=== PATIENT | female | born 1965 | race Caucasian/White ===

== ENCOUNTER 2018-06-10 10:45 | Emergency (ER) | payer OTHER, MEDICAID, SELFPAY ==
[2018-06-10 10:52] VITALS: BP 182/90; PULSE 83; RESP 18; TEMP 36.5; O2SAT 100; BMI 30.4
--- NOTE | 2018-06-10 11:27 | ED.BACK ---
HPI - Back Pain/Injury General Chief Complaint: Back Pain/Injury Stated Complaint: right side back pain Time Seen by Provider: 06/10/18 11:26 Source: patient Mode of arrival: ambulatory Limitations: no limitations History of Present Illness HPI Narrative: This is a 52-year-old female comes to the emergency department with complaint of right flank pain. Patient states it is kind of her middle lower back. She states that she was homeless before and was sleeping on the ground and has been in bed this week so she thought that might have exacerbated things. Movement does make it worse. Particularly bending over. She does not have any pain radiating down her leg. She does not have any bowel or bladder incontinence. She does not recall any single traumatic episode or event that started the pain. She did have a UTI and her antibiotics were not completed as they were stolen along with her blood pressure medication. She has not had any fevers, she has occasionally had some slight nausea but no vomiting. no chest pain, no shortness of breath. no diarrhea or constipation. She has not noticed a lot of dysuria, urgency or frequency. Related Data Previous Rx's Medication Instructions Recorded ciprofloxacin HCl 500 mg PO BID #28 tab 06/10/18 lisinopril 5 mg PO DAILY #30 tab 06/10/18 tramadol [Ultram] 50 mg PO Q6H PRN #5 tab 06/10/18 Allergies Allergy/AdvReac Type Severity Reaction Status Date / Time No Known Drug Allergies Allergy Verified 06/10/18 10:57 Review of Systems Review of Systems ROS Unobtainable: All systems reviewed & are unremarkable except as noted in HPI and below Constitutional Denies body ache(s), Denies chills, Denies excessive sweating, Denies fever(s), Denies lethargy and Denies weakness Cardiovascular Denies chest pain, Denies diaphoresis, Denies leg edema, Denies lightheadedness, Denies dyspnea and Denies dyspnea on exertion Respiratory Denies chest congestion, Denies cough, Denies dyspnea, Denies dyspnea on exertion and Denies wheezing Gastrointestinal Gastrointestinal: Denies abdominal pain, Denies change in bowel habits, Denies fecal incontinence, Denies diarrhea, Denies nausea and Denies vomiting Genitourinary Denies urinary frequency, Denies dysuria, Reports flank pain (left), Denies urinary incontinence and Denies urinary urgency Musculoskeletal Reports as per HPI, Denies abnormal gait, Reports back pain (right lower back.), Reports limited range of motion (mildly), Denies numbness, Denies radiating pain into limb and Denies tingling Neurologic Denies abnormal gait, Denies numbness, Denies tingling and Denies weakness Endocrine Denies excessive sweating Allergic/Immunologic Denies wheezing [facility] Medical History (Updated 06/10/18 @ 12:44 by Giselle Grady DO) Coronary artery disease (Chronic) Hypertension (Chronic) Tobacco abuse (Chronic) Surgical History (Updated 06/10/18 @ 11:46 by Giselle Grady DO) H/O angioplasty (Chronic) Social History (Updated 06/10/18 @ 11:46 by Giselle Grady DO) housing: homeless Smoking Status: Current every day smoker alcohol intake: current substance use type: marijuana additional social history: Homeless, currently staying with mother locally. Unsure if will stay in area or not. Social History (Updated 06/10/18 @ 11:46 by Giselle Grady DO) housing: homeless Smoking Status: Current every day smoker alcohol intake: current substance use type: marijuana additional social history: Homeless, currently staying with mother locally. Unsure if will stay in area or not. Exam Narrative Exam Narrative: GENERAL: Alert and oriented x three, well-nourished, well-appearing female in mild distress. HEENT: Head normocephalic, atraumatic, EOMI, pupils reactive, face symmetric, moist mucous membranes NECK: Supple, full range of motion CARDIOVASCULAR: Regular rate and rhythm without murmurs, rubs or gallops. RESPIRATORY: Breath sounds equal bilaterally, no wheezes rales or rhonchi. ABDOMEN: Soft, nontender. Normoactive bowel sounds all 4 quadrants. No guarding or rebound, rigidity, no mass BACK: No cervical, thoracic or lumbar vertebral point tenderness. Patient has normal range of motion. Patient's gait is normal. Rectal exam is deferred. Muscle strength is 5/5 in lower extremities, DTRs are 2/4 and lower extremities. Dorsalis pedis and tibialis pulses are 2+ and lower extremities. Sensation is intact in the lower extremities. : Very mild right CVA tenderness, no left CVA tenderness. EXTREMITIES: Normal range of motion, no clubbing or edema. Neurovascularly intact NEUROLOGICAL: Cranial nerves II through XII grossly intact. Moving all extremities SKIN: Warm, dry, no petechiae, no rashes or lesions. Initial Vital Signs Initial Vital Signs: Vital Signs Temperature 97.7 F 06/10/18 10:52 Pulse Rate 83 06/10/18 10:52 Respiratory Rate 18 06/10/18 10:52 Blood Pressure 182/90 H 06/10/18 10:52 Pulse Oximetry 100 06/10/18 10:52 Course Orders Ordered: ED Orders 06/10/18 12:44 Urine Culture Stat Urine Microscopic Stat Discontinued Medications Ketorolac Tromethamine (Toradol) 60 mg IM NOW ONE Stop: 06/10/18 11:43 Last Admin: 06/10/18 12:33 Dose: 60 mg Vital Signs - 8 hr 06/10/18 13:01 Pulse Rate 65 Respiratory Rate 12 Blood Pressure [Left Arm] 161/100 H Pulse Oximetry 99 MDM - Back Pain/Injury Lab Data Attestation: I reviewed the patient's lab results. Lab Results 06/10/18 Range/Units 12:44 Urine RBC None seen (0-5/HPF) Urine WBC 5-10/hpf H (0-5/HPF) Ur Squamous Epith Cells 0-1 /hpf (0-5/HPF) Urine Bacteria Many (>30) H (None) Ur Culture Indicated? Specimen cultured Urine Dip Bedside Urine Glucose Negative Bedside Urine Bilirubin - Negative Bedside Urine Ketone - Negative Urine Specific [place] 1.025 Bedside Urine Occult Blood - Negative Bedside Urine pH 6.0 Bedside Urine Protein +/- 15 Bedside Urine Urobilinogen +/- 1mg Bedside Urine Nitrite + Positive Bedside Urine Leukocytes ++ 125 Esterase MDM Narrative Medical decision making narrative: Patient's UA shows nitrates as well as leukocyte esterase, with her recurrent flank pain. Her blood pressure is elevated but otherwise normal vitals she has not been vomiting or febrile so would treat as a pyelo antibiotic domínguez but do not feel that she needs lab work at this time. She did used to take lisinopril 5 mg so we discussed giving a prescription. Also recommend that she restart her aspirin that she used to take. She requested some medication for pain so give her 5 tramadol tablets. Discharge Plan Departure Patient Disposition: Home Clinical Impression: Pyelonephritis, Hypertension Discharge Date/Time: 06/10/18 13:05 Interventions: ED Discharge Assessment Last Done: 06/10/18 13:03 Instructions: DI for Kidney Infection Activity Restrictions/Additional Instructions: Take antibiotics until they are completely gone. Start them today. Restart her blood pressure medication, take 1 tablet of lisinopril daily. I also recommend you take 81 mg aspirin like you used to take. Take pain medication as prescribed, this medication can make you sleepy do not drive, perform hazards activities or make any major decisions while taking them. Return to the emergency department for persistent fevers, persistent vomiting, rapidly worsening abdominal, back or flank pain, passing out, black or bloody stools or other new or concerning symptoms. Prescriptions: New lisinopril 5 mg tablet 5 mg PO DAILY Qty: 30 RF: 0 ciprofloxacin HCl 500 mg tablet 500 mg PO BID Qty: 28 RF: 0 tramadol [Ultram] 50 mg tablet 50 mg PO Q6H PRN (Reason: pain) Qty: 5 RF: 0
[2018-06-10] MEDS: KETOROLAC 60 MG/2 ML VIAL IM (12:33)
[2018-06-10 12:45] LABS: RBC Urine None Seen (0-5/HPF)
[2018-06-10 13:01] VITALS: BP 161/100; PULSE 65; RESP 12; O2SAT 99
[2018-06-10 13:02] LABS: Bacteria Urine Many (>30); Culture Indicated Urine Specimen Cultured; Squamous Epithelial Cell Urine 0-1 /HPF (0-5/HPF); WBC Urine 5-10/HPF (0-5/HPF)
== END 2018-06-10 13:05 | disposition home or self-care (01) ==
PROVIDERS: Emergency Provider Emergency Medicine
DX: N12 Tubulo-interstitial nephritis, not specified as acute or chronic (principal); I10 Essential (primary) hypertension; R11.0 Nausea
CPT/HCPCS: 81003; 81015; 87077; 87086; 87186; 96372; 99283; J1885

== ENCOUNTER 2018-06-13 14:04 | Emergency (ER) | payer OTHER, MEDICAID, SELFPAY ==
[2018-06-13 14:29] VITALS: BP 165/88; PULSE 78; RESP 20; TEMP 37.3; O2SAT 97; BMI 33.4
--- NOTE | 2018-06-13 15:13 | ED.BACK ---
HPI - Back Pain/Injury <NARAYAN Gutierres - Last Filed: 06/13/18 19:13> General Chief Complaint: Back Pain/Injury Stated Complaint: Back pain,lower rt side Time Seen by Provider: 06/13/18 15:04 Source: patient Mode of arrival: ambulatory Limitations: no limitations History of Present Illness HPI Narrative: The patient is a 52-year-old female with history of hypertension current everyday smoker who presents with a chief complaint of right-sided back pain. She was seen at this facility and diagnosed with pyelonephritis on 06/10/2018. She was started on Cipro and states she has been taking the medication as directed. She states she felt better for a few days, and then that her right back started hurting. She denies any vomiting, but complains of nausea. She does complain of low-grade temperatures. She denies any chest pain or shortness of breath. Related Data Previous Rx's Medication Instructions Recorded ciprofloxacin HCl 500 mg PO BID #28 tab 06/10/18 lisinopril 5 mg PO DAILY #30 tab 06/10/18 tramadol [Ultram] 50 mg PO Q6H PRN #5 tab 06/10/18 Allergies Allergy/AdvReac Type Severity Reaction Status Date / Time No Known Drug Allergies Allergy Verified 06/10/18 10:57 Review of Systems <NARAYAN Gutierres - Last Filed: 06/13/18 19:13> Review of Systems GENERAL: Denies chills, fatigue, malaise, fever, sweats. HEENT: Denies sinus pain, ear pain, sore throat, difficulty swallowing, dizziness. RESPIRATORY: Denies dyspnea, cough, wheezing, hemoptysis, sputum. CARDIOVASCULAR: Denies chest pain, palpitations, orthopnea, edema, GASTROINTESTINAL: See HPI : See HPI MUSCULOSKELETAL: denies weakness, joint pain, or bony pain SKIN: Denies rash, skin lesions, or other NEUROLOGIC: Denies weakness, headache, numbness, change in speech, confusion, seizures, incoordination. PSYCHIATRIC: No concerning psychosocial issues. 12 point review of systems is negative except for those stated above PFSH <NARAYAN Gutierres - Last Filed: 06/13/18 19:13> Medical History Coronary artery disease (Chronic) Hypertension (Chronic) Tobacco abuse (Chronic) Surgical History (Updated 06/10/18 @ 11:46 by Giselle Grady DO) H/O angioplasty (Chronic) Social History (Updated 06/10/18 @ 11:46 by Giselle Grady DO) housing: homeless Smoking Status: Current every day smoker alcohol intake: current substance use type: marijuana additional social history: Homeless, currently staying with mother locally. Unsure if will stay in area or not. Social History (Updated 06/10/18 @ 11:46 by Giselle Grady DO) housing: homeless Smoking Status: Current every day smoker alcohol intake: current substance use type: marijuana additional social history: Homeless, currently staying with mother locally. Unsure if will stay in area or not. Exam <NARAYAN Gutierres - Last Filed: 06/13/18 19:13> Narrative Exam Narrative: GENERAL: This is a well-nourished, well-developed patient, bent over on exam table HEAD: Atraumatic. Normocephalic. No temporal or scalp tenderness. EYES: Pupils equal round and reactive. Extraocular motions intact. No scleral icterus. No injection or drainage. ENT: Nose without bleeding, purulent drainage or septal hematoma. Throat without erythema, tonsillar hypertrophy or exudate. Uvula midline. Airway patent. NECK: Trachea midline. No JVD or lymphadenopathy. Supple, nontender, no meningeal signs. CARDIOVASCULAR: Regular rate and rhythm without murmurs, gallops, or rubs. RESPIRATORY: Clear to auscultation. Breath sounds equal bilaterally. No wheezes, rales, or rhonchi. No cough. No increased respiratory effort. GASTROINTESTINAL: Abdomen soft, non-tender, nondistended. No hepato-splenomegaly, or palpable masses. No guarding. EXTREMITIES: No clubbing, cyanosis, or edema. No joint tenderness, effusion, or edema noted. BACK: Nontender without deformity or crepitance. Flank tenderness right, no flank tenderness on left NEURO: AOx3. SKIN: No rash or erythema. Initial Vital Signs Initial Vital Signs: Vital Signs Temperature 99.1 F 06/13/18 14:29 Pulse Rate 78 06/13/18 14:29 Respiratory Rate 20 06/13/18 14:29 Blood Pressure 165/88 H 06/13/18 14:29 Pulse Oximetry 97 06/13/18 14:29 <Janki Nair MD - Last Filed: 06/15/18 14:18> Initial Vital Signs Initial Vital Signs: Vital Signs Temperature 99.1 F 06/13/18 14:29 Pulse Rate 78 06/13/18 14:29 Respiratory Rate 20 06/13/18 14:29 Blood Pressure 165/88 H 06/13/18 14:29 Pulse Oximetry 97 06/13/18 14:29 Course <JOSH Gutierres- - Last Filed: 06/13/18 19:13> Orders Ordered: Discontinued Medications Sodium Chloride (Normal Saline 0.9%) 1,000 mls @ 1,000 mls/hr IV BOLUS ONE Stop: 06/13/18 16:10 Last Infusion: 06/13/18 16:12 Dose: 0 mls/hr Admin: 06/13/18 15:38 Dose: 1,000 mls/hr Ketorolac Tromethamine (Toradol) 30 mg IV NOW ONE Stop: 06/13/18 15:12 Last Admin: 06/13/18 15:37 Dose: 30 mg Ondansetron HCl (Zofran) 4 mg IV NOW ONE Stop: 06/13/18 15:12 Last Admin: 06/13/18 15:37 Dose: 4 mg Vital Signs - 8 hr 06/13/18 14:29 06/13/18 18:05 Temperature 99.1 F Pulse Rate 78 66 Respiratory Rate 20 15 Blood Pressure 165/88 H Blood Pressure [Left Arm] 139/72 Pulse Oximetry 97 100 <Janki Nair MD - Last Filed: 06/15/18 14:18> Orders Ordered: Discontinued Medications Sodium Chloride (Normal Saline 0.9%) 1,000 mls @ 1,000 mls/hr IV BOLUS ONE Stop: 06/13/18 16:10 Last Infusion: 06/13/18 16:12 Dose: 0 mls/hr Admin: 06/13/18 15:38 Dose: 1,000 mls/hr Ketorolac Tromethamine (Toradol) 30 mg IV NOW ONE Stop: 06/13/18 15:12 Last Admin: 06/13/18 15:37 Dose: 30 mg Ondansetron HCl (Zofran) 4 mg IV NOW ONE Stop: 06/13/18 15:12 Last Admin: 06/13/18 15:37 Dose: 4 mg Vital Signs - 8 hr 06/13/18 14:29 06/13/18 18:05 Temperature 99.1 F Pulse Rate 78 66 Respiratory Rate 20 15 Blood Pressure 165/88 H Blood Pressure [Left Arm] 139/72 Pulse Oximetry 97 100 MDM - Back Pain/Injury <ANDRES GutierresP- - Last Filed: 06/13/18 19:13> Lab Data Attestation: I reviewed the patient's lab results. Result diagrams: 06/13/18 15:30 06/13/18 15:30 Lab Results 06/13/18 06/13/18 06/13/18 Range/Units 15:30 15:30 15:30 WBC 7.5 (4.5-11.0) X10^3/uL RBC 4.30 (4.0-5.2) X10^6/uL Hgb 11.1 L (12.0-16.0) g/dL Hct 33.3 L (36-46) % MCV 77.5 L (80-100) fL MCH 25.8 L (26-34) PG MCHC 33.3 (30-36) % RDW 18.4 H (11.6-14.8) % Plt Count 221 (150-400) X10^3/uL Neut % (Auto) 58.9 (50-75) % Lymph % (Auto) 25.6 (25-40) % [place] % (Auto) 10.7 (3-14) % Eos % (Auto) 3.7 (2-4) % Baso % (Auto) 1.1 (0-2) % Neut # (Auto) 4400 (4726-2684) /uL Lymph # (Auto) 1900 (2530-1667) /uL [place] # (Auto) 800 (0-900) /uL Eos # (Auto) 300 (0-450) /uL Baso # (Auto) 100 (0-100) /uL Sodium 136 L (137-145) mmol/L Potassium 4.5 (3.4-5.1) mmol/L Chloride 106 (98-107) mmol/L Carbon Dioxide 25 (22-32) mmol/L BUN 20 H (7-17) mg/dL Creatinine 0.80 (0.52-1.04) mg/dL Estimated GFR > 60.0 (>60) mL/min BUN/Creatinine Ratio 25.0 H (6-22) Glucose 85 (70-100) mg/dL Lactate 0.5 L (0.7-2.1) mmol/L Calcium 8.7 (8.4-10.2) mg/dL Total Bilirubin 0.2 (0.2-1.3) mg/dL AST 16 (14-36) IU/L ALT 24 (9-52) IU/L Alkaline Phosphatase 61 (38-126) U/L Total Protein 6.3 (6.3-8.2) g/dL Albumin 3.6 (3.5-5.0) g/dL Globulin 2.7 (1.7-4.1) g/dL Albumin/Globulin Ratio 1.3 (1.0-2.8) Urine Color Urine Appearance Urine pH (4.5-8.0) Ur Specific Burr (1.000-1.035) Urine Protein (Negative) Urine Glucose (UA) (Negative) g/dL Urine Ketones (NEGATIVE) Urine Occult Blood (Negative) Urine Nitrate (Negative) Urine Bilirubin (NEGATIVE) Urine Urobilinogen (0.2) E.U./dL Ur Leukocyte Esterase (NEGATIVE) Urine RBC (0-5/HPF) Urine WBC (0-5/HPF) Ur Squamous Epith Cells (0-5/HPF) Urine Bacteria (None) Ur Culture Indicated? Urine Opiates Screen (Negative) Ur Oxycodone Screen (Negative) Urine Methadone Screen (Negative) Ur Barbiturates Screen (Negative) U Tricyclic Antidepress (Negative) Ur Phencyclidine Scrn (Negative) Ur Amphetamines Screen (Negative) U Methamphetamines Scrn (Negative) Ur MDMA Scrn (Ecstasy) (Negative) U Benzodiazepines Scrn (Negative) Urine Cocaine Screen (Negative) U Marijuana (THC) Screen (Negative) 06/13/18 06/13/18 Range/Units 16:55 16:55 WBC (4.5-11.0) X10^3/uL RBC (4.0-5.2) X10^6/uL Hgb (12.0-16.0) g/dL Hct (36-46) % MCV (80-100) fL MCH (26-34) PG MCHC (30-36) % RDW (11.6-14.8) % Plt Count (150-400) X10^3/uL Neut % (Auto) (50-75) % Lymph % (Auto) (25-40) % [place] % (Auto) (3-14) % Eos % (Auto) (2-4) % Baso % (Auto) (0-2) % Neut # (Auto) (3101-7916) /uL Lymph # (Auto) (6856-1126) /uL [place] # (Auto) (0-900) /uL Eos # (Auto) (0-450) /uL Baso # (Auto) (0-100) /uL Sodium (137-145) mmol/L Potassium (3.4-5.1) mmol/L Chloride (98-107) mmol/L Carbon Dioxide (22-32) mmol/L BUN (7-17) mg/dL Creatinine (0.52-1.04) mg/dL Estimated GFR (>60) mL/min BUN/Creatinine Ratio (6-22) Glucose (70-100) mg/dL Lactate (0.7-2.1) mmol/L Calcium (8.4-10.2) mg/dL Total Bilirubin (0.2-1.3) mg/dL AST (14-36) IU/L ALT (9-52) IU/L Alkaline Phosphatase (38-126) U/L Total Protein (6.3-8.2) g/dL Albumin (3.5-5.0) g/dL Globulin (1.7-4.1) g/dL Albumin/Globulin Ratio (1.0-2.8) Urine Color Yellow Urine Appearance Clear Urine pH 5.0 (4.5-8.0) Ur Specific Burr 1.020 (1.000-1.035) Urine Protein Negative (Negative) Urine Glucose (UA) Negative (Negative) g/dL Urine Ketones Negative (NEGATIVE) Urine Occult Blood Negative (Negative) Urine Nitrate Negative (Negative) Urine Bilirubin Negative (NEGATIVE) Urine Urobilinogen 0.2 (0.2) E.U./dL Ur Leukocyte Esterase Negative (NEGATIVE) Urine RBC None seen (0-5/HPF) Urine WBC 0-1/hpf (0-5/HPF) Ur Squamous Epith Cells 0-1 /hpf (0-5/HPF) Urine Bacteria None seen (None) Ur Culture Indicated? Cult not indicated Urine Opiates Screen Negative (Negative) Ur Oxycodone Screen Positive H (Negative) Urine Methadone Screen Negative (Negative) Ur Barbiturates Screen Negative (Negative) U Tricyclic Antidepress Negative (Negative) Ur Phencyclidine Scrn Negative (Negative) Ur Amphetamines Screen Negative (Negative) U Methamphetamines Scrn Negative (Negative) Ur MDMA Scrn (Ecstasy) Negative (Negative) U Benzodiazepines Scrn Negative (Negative) Urine Cocaine Screen Negative (Negative) U Marijuana (THC) Screen Positive H (Negative) Point of Care Testing Test Results Negative MDM Narrative Medical decision making narrative: The patient is a 52-year-old female who presents for the chief complaint of right flank pain. Given that she was at this facility 2 days ago and diagnosed with pyelonephritis, workup was completed. Chart review x-ray that the patient gets urine culture from 2 days ago showed susceptibility to Cipro, which is what she is on. She has a normal lactate, does not have an elevated white blood cell count. She is hemodynamically stable, and afebrile in the emergency department. Given that she has persistent pain with a normal lactate blood cell count, I discussed the possibility of a kidney stone. She does not have any blood in her urine and her UA looks overall improved from her visit 2 days ago. She the patient had great improvement of her pain with Toradol administration. She declined any further workup today, stating she would not want a CT scan until she tries the Toradol. I did give her prescription for 2 days worth of Toradol. I discussed at length that taking Aleve, ibuprofen or other NSAIDs on top of the Toradol. I showed her to go home and rest and push fluids. Patient stated understanding and stated understanding of return precautions for fever, it would keep down fluids etc. Patient has no questions or concerns upon discharge. <Janki Nair MD - Last Filed: 06/15/18 14:18> Lab Data Lab Results 06/13/18 06/13/18 06/13/18 Range/Units 15:30 15:30 15:30 WBC 7.5 (4.5-11.0) X10^3/uL RBC 4.30 (4.0-5.2) X10^6/uL Hgb 11.1 L (12.0-16.0) g/dL Hct 33.3 L (36-46) % MCV 77.5 L (80-100) fL MCH 25.8 L (26-34) PG MCHC 33.3 (30-36) % RDW 18.4 H (11.6-14.8) % Plt Count 221 (150-400) X10^3/uL Neut % (Auto) 58.9 (50-75) % Lymph % (Auto) 25.6 (25-40) % [place] % (Auto) 10.7 (3-14) % Eos % (Auto) 3.7 (2-4) % Baso % (Auto) 1.1 (0-2) % Neut # (Auto) 4400 (8874-7047) /uL Lymph # (Auto) 1900 (9727-3052) /uL [place] # (Auto) 800 (0-900) /uL Eos # (Auto) 300 (0-450) /uL Baso # (Auto) 100 (0-100) /uL Sodium 136 L (137-145) mmol/L Potassium 4.5 (3.4-5.1) mmol/L Chloride 106 (98-107) mmol/L Carbon Dioxide 25 (22-32) mmol/L BUN 20 H (7-17) mg/dL Creatinine 0.80 (0.52-1.04) mg/dL Estimated GFR > 60.0 (>60) mL/min BUN/Creatinine Ratio 25.0 H (6-22) Glucose 85 (70-100) mg/dL Lactate 0.5 L (0.7-2.1) mmol/L Calcium 8.7 (8.4-10.2) mg/dL Total Bilirubin 0.2 (0.2-1.3) mg/dL AST 16 (14-36) IU/L ALT 24 (9-52) IU/L Alkaline Phosphatase 61 (38-126) U/L Total Protein 6.3 (6.3-8.2) g/dL Albumin 3.6 (3.5-5.0) g/dL Globulin 2.7 (1.7-4.1) g/dL Albumin/Globulin Ratio 1.3 (1.0-2.8) Urine Color Urine Appearance Urine pH (4.5-8.0) Ur Specific Burr (1.000-1.035) Urine Protein (Negative) Urine Glucose (UA) (Negative) g/dL Urine Ketones (NEGATIVE) Urine Occult Blood (Negative) Urine Nitrate (Negative) Urine Bilirubin (NEGATIVE) Urine Urobilinogen (0.2) E.U./dL Ur Leukocyte Esterase (NEGATIVE) Urine RBC (0-5/HPF) Urine WBC (0-5/HPF) Ur Squamous Epith Cells (0-5/HPF) Urine Bacteria (None) Ur Culture Indicated? Urine Opiates Screen (Negative) Ur Oxycodone Screen (Negative) Urine Methadone Screen (Negative) Ur Barbiturates Screen (Negative) U Tricyclic Antidepress (Negative) Ur Phencyclidine Scrn (Negative) Ur Amphetamines Screen (Negative) U Methamphetamines Scrn (Negative) Ur MDMA Scrn (Ecstasy) (Negative) U Benzodiazepines Scrn (Negative) Urine Cocaine Screen (Negative) U Marijuana (THC) Screen (Negative) 06/13/18 06/13/18 Range/Units 16:55 16:55 WBC (4.5-11.0) X10^3/uL RBC (4.0-5.2) X10^6/uL Hgb (12.0-16.0) g/dL Hct (36-46) % MCV (80-100) fL MCH (26-34) PG MCHC (30-36) % RDW (11.6-14.8) % Plt Count (150-400) X10^3/uL Neut % (Auto) (50-75) % Lymph % (Auto) (25-40) % [place] % (Auto) (3-14) % Eos % (Auto) (2-4) % Baso % (Auto) (0-2) % Neut # (Auto) (4230-4083) /uL Lymph # (Auto) (3712-0474) /uL [place] # (Auto) (0-900) /uL Eos # (Auto) (0-450) /uL Baso # (Auto) (0-100) /uL Sodium (137-145) mmol/L Potassium (3.4-5.1) mmol/L Chloride (98-107) mmol/L Carbon Dioxide (22-32) mmol/L BUN (7-17) mg/dL Creatinine (0.52-1.04) mg/dL Estimated GFR (>60) mL/min BUN/Creatinine Ratio (6-22) Glucose (70-100) mg/dL Lactate (0.7-2.1) mmol/L Calcium (8.4-10.2) mg/dL Total Bilirubin (0.2-1.3) mg/dL AST (14-36) IU/L ALT (9-52) IU/L Alkaline Phosphatase (38-126) U/L Total Protein (6.3-8.2) g/dL Albumin (3.5-5.0) g/dL Globulin (1.7-4.1) g/dL Albumin/Globulin Ratio (1.0-2.8) Urine Color Yellow Urine Appearance Clear Urine pH 5.0 (4.5-8.0) Ur Specific Burr 1.020 (1.000-1.035) Urine Protein Negative (Negative) Urine Glucose (UA) Negative (Negative) g/dL Urine Ketones Negative (NEGATIVE) Urine Occult Blood Negative (Negative) Urine Nitrate Negative (Negative) Urine Bilirubin Negative (NEGATIVE) Urine Urobilinogen 0.2 (0.2) E.U./dL Ur Leukocyte Esterase Negative (NEGATIVE) Urine RBC None seen (0-5/HPF) Urine WBC 0-1/hpf (0-5/HPF) Ur Squamous Epith Cells 0-1 /hpf (0-5/HPF) Urine Bacteria None seen (None) Ur Culture Indicated? Cult not indicated Urine Opiates Screen Negative (Negative) Ur Oxycodone Screen Positive H (Negative) Urine Methadone Screen Negative (Negative) Ur Barbiturates Screen Negative (Negative) U Tricyclic Antidepress Negative (Negative) Ur Phencyclidine Scrn Negative (Negative) Ur Amphetamines Screen Negative (Negative) U Methamphetamines Scrn Negative (Negative) Ur MDMA Scrn (Ecstasy) Negative (Negative) U Benzodiazepines Scrn Negative (Negative) Urine Cocaine Screen Negative (Negative) U Marijuana (THC) Screen Positive H (Negative) Point of Care Testing Test Results Negative Discharge Plan Departure Patient Disposition: Home Clinical Impression: Pyelonephritis, Acute right flank pain Discharge Date/Time: 06/13/18 18:34 Interventions: ED Discharge Assessment Last Done: 06/13/18 18:33 Instructions: DI for Kidney Infection, DI for Flank Pain Activity Restrictions/Additional Instructions: Please continue to take her antibiotic for her kidney infection. I am giving a prescription for Toradol. Please do not take this with ibuprofen Aleve or any other NSAIDs. Please go home and rest. Please put fluids and take it easy. Follow up with her primary care provider as we discussed. Monitor for fever, vomiting and signs that you are getting sicker. Your lab work is reassuring today. Please follow up with primary care and come back to the emergency department for any acute concerns. Prescriptions: No Action lisinopril 5 mg tablet 5 mg PO DAILY Qty: 30 RF: 0 ciprofloxacin HCl 500 mg tablet 500 mg PO BID Qty: 28 RF: 0 tramadol [Ultram] 50 mg tablet 50 mg PO Q6H PRN (Reason: pain) Qty: 5 RF: 0
[2018-06-13] MEDS: KETOROLAC 60 MG/2 ML VIAL 30 MG IV (15:37)
[2018-06-13] MEDS: ONDANSETRON 4 MG/2 ML INJ IV (15:37)
[2018-06-13] MEDS: SODIUM CHLORIDE 0.9% 1,000 ML 1000 ML IV (15:38)
[2018-06-13 15:52] LABS: Add Manual Diff / Slide Review NO; Basophils Absolute Auto 100 /uL (0-100); Basophils Percent Auto 1.1 % (0-2); Eosinophils Absolute Auto 300 /uL (0-450); Eosinophils Percent Auto 3.7 % (2-4); Hematocrit 33.3 % (36-46); Hemoglobin 11.1 g/dL (12.0-16.0); Lymphocytes Absolute Auto 1900 /uL (1100-4500); Lymphocytes Percent Auto 25.6 % (25-40); Mean Corpuscular HGB Conc 33.3 % (30-36); Mean Corpuscular Hemoglobin 25.8 PG (26-34); Mean Corpuscular Volume 77.5 fL (80-100); Monocytes Absolute Auto 800 /uL (0-900); Monocytes Percent Auto 10.7 % (3-14); Neutrophils Absolute Auto 4400 /uL (1500-7000); Neutrophils Percent Auto 58.9 % (50-75); Platelet Count 221 X10^3/uL (150-400); Red Cell Distribution Width 18.4 % (11.6-14.8); White Blood Cell Count 7.5 X10^3/uL (4.5-11.0)
[2018-06-13 15:58] LABS: Lactate (Lactic Acid) 0.5 mmol/L (0.7-2.1)
[2018-06-13 15:59] LABS: Alanine Aminotransferase 24 IU/L (9-52); Albumin 3.6 g/dL (3.5-5.0); Albumin Globulin Ratio 1.3 (1.0-2.8); Alkaline Phosphatase 61 U/L (38-126); Aspartate Aminotransferase 16 IU/L (14-36); Bilirubin Total 0.2 mg/dL (0.2-1.3); Blood Urea Nitrogen 20 mg/dL (7-17); Calcium 8.7 mg/dL (8.4-10.2); Carbon Dioxide 25 mmol/L (22-32); Chloride 106 mmol/L (98-107); Estimated Glomerular Filt Rate > 60.0 mL/min (>60); Globulin 2.7 g/dL (1.7-4.1); Glucose 85 mg/dL (70-100); HEMOLYSIS < 15 (0-50); Potassium 4.5 mmol/L (3.4-5.1); Sodium 136 mmol/L (137-145); Total Protein 6.3 g/dL (6.3-8.2)
[2018-06-13 17:03] LABS: Bacteria Urine None Seen; RBC Urine None Seen (0-5/HPF)
[2018-06-13 17:05] LABS: Appearance Urine UA CLEAR; Bilirubin Urine UA NEGATIVE (NEGATIVE); Color Urine UA YELLOW; Glucose Urine UA NEGATIVE (Negative); Ketones Urine UA NEGATIVE (NEGATIVE); Leukocyte Esterase Urine UA NEGATIVE (NEGATIVE); Nitrite Urine UA NEGATIVE (Negative); Occult Blood Urine UA NEGATIVE (Negative); Protein Urine UA NEGATIVE (Negative); Urobilinogen Urine UA 0.2 E.U./dL (0.2)
[2018-06-13 17:14] LABS: Urine Amphetamines Negative (Negative); Urine Barbiturates Negative (Negative); Urine Benzodiazepines Negative (Negative); Urine Cocaine Negative (Negative); Urine MDMA Negative (Negative); Urine Methadone Negative (Negative); Urine Methamphetamines Negative (Negative); Urine Morphine/Opi cutoff 2000 Negative (Negative); Urine Oxycodone Positive (Negative); Urine Phencyclidine Negative (Negative); Urine Tetrahydrocannabinol Positive (Negative); Urine Tricyclic Antidepressant Negative (Negative)
[2018-06-13 17:21] LABS: Culture Indicated Urine Cult Not Indicated; Squamous Epithelial Cell Urine 0-1 /HPF (0-5/HPF); WBC Urine 0-1/HPF (0-5/HPF)
[2018-06-13 18:05] VITALS: BP 139/72; PULSE 66; RESP 15; O2SAT 100
== END 2018-06-13 18:34 | disposition home or self-care (01) ==
PROVIDERS: Emergency Provider Nurse Practitioner Family
DX: N12 Tubulo-interstitial nephritis, not specified as acute or chronic (principal); R10.9 Unspecified abdominal pain
CPT/HCPCS: 36591; 80053; 80305; 81001; 81025; 83605; 85025; 96361; 96374; 96375; 99283; 99284; J1885; J2405

== ENCOUNTER 2018-12-19 14:48 | Observation (INO) | payer OTHER, MEDICAID, SELFPAY ==
--- NOTE | 2018-12-19 | DI.ECHO.S_ITS ---
[facility]---------+ [facility] +---------+ : : [address] [place] [address] : : : : [id number] : : : : Phone: [phone]+ Echocardiogram Report + + :Name: ALONDRA SHEPPARD Study Date: 12/20/2018 Height: 68 in : :[facility] Weight: 216 lb : : Gender: Female BSA: 2.1 m2 : :: 1965 Age: 53 yrs BP: 158/90 mmHg: :Reason For Study: Pulmonary- Embolism : : Performed By: Nargis Antunez : :Referring: IMELDA AMBROSE : + + Interpretation Summary Left ventricular wall thickness is mildly increased. The left ventricular ejection fraction is normal. There are no focal wall motion abnormalities. Diastolic parameters suggest probable normal left ventricular diastolic function and normal filling pressures. The right ventricle is normal size. The right ventricular systolic function is normal. Pulmonary artery pressures cannot be estimated because of the lack of a measurable TR jet velocity but the IVC suggests a CVP of around 3 mmHg. No hemodynamically significant valvular abnormalities. No evidence of pulmonary emboli based on this echocardiogram. However, this possibility cannot be ruled out by transthoracic echo. No prior echo for comparison. Procedure: A two-dimensional transthoracic echocardiogram with color flow and Doppler was performed. The study quality was technically adequate. There is no prior echocardiogram noted for this patient. The patient was in normal sinus rhythm during the exam. Left Ventricle: Left ventricular wall thickness is mildly increased. The left ventricle is normal in size. The ejection fraction is estimated to be 60- 65%. The left ventricular ejection fraction is normal. There are no focal wall motion abnormalities. Diastolic parameters suggest probable normal left ventricular diastolic function and normal filling pressures. Right Ventricle: The right ventricle is normal size. The right ventricular systolic function is normal. TAPSE is approximately 1.9 cm. Atria: The left atrial size is normal. Right atrial size is normal. There is no Doppler evidence for an interatrial shunt. In some views, interatrial septum appears to be aneurysmal. However this is not adequately visualized. Mitral Valve: The mitral valve is normal in structure and function. There is trace mitral regurgitation. Aortic Valve: The aortic valve is trileaflet. The aortic valve opens well. There is no aortic valve stenosis. No aortic regurgitation is present. Tricuspid Valve: The tricuspid valve is normal in structure and function. There is trace tricuspid regurgitation. Pulmonary artery pressures cannot be estimated because of the lack of a measurable TR jet velocity but the IVC suggests a CVP of around 3 mmHg. Pulmonic Valve: The pulmonic valve is not well seen, but is grossly normal. There is trace pulmonic regurgitation. Great Vessels: The aortic root is normal size. The aortic arch is normal in size. Pericardium/ Pleura There is no pericardial effusion. There is no pleural effusion. MMode/2D Measurements & Calculations LVIDd: 5.1 cm Ao root diam: 3.4 cm LVIDs: 2.8 cm Aortic Jxn: 3.2 cm FS: 44.8 % Ao Arch Diam (Prox Trans): 2.9 cm EPSS: 0.87 cm IVSd: 1.1 cm LVPWd: 1.0 cm LV dejesus. diameter/BSA (cm/m^2): 2.4 LV sys. diameter/BSA (cm/m^2): 1.3 LA dimension: 3.7 cm RA long axis: 4.9 cm LA A2 area: 26.9 cm2 RA area: 16.9 cm2 LA A4 area: 25.9 cm2 RA vol: 49.0 ml LA length (vol): 6.0 cm RA : 23.2 ml/m2 LA vol: 99.6 ml IVC diam: 2.3 cm LA vol index: 47.1 ml/m2 RVDd major: 6.6 cm RVD1 (basal): 3.0 cm RVD2 (mid): 2.8 cm Doppler Measurements & Calculations Ao V2 max: 129.8 cm/sec MV E max agusto: 88.9 cm/sec Ao V2 mean: 86.7 cm/sec MV A max agusto: 48.0 cm/sec Ao max P.7 mmHg MV E/A: 1.9 Ao mean P.5 mmHg Med Peak E' Agusto: 7.1 cm/sec Ao V2 VTI: 28.8 cm E/E' med: 12.6 Lat Peak E' Agusto: 5.6 cm/sec E/E' lat: 15.9 E/e' average: 14.3 MV dec time: 0.26 sec MV P1/2t: 76.9 msec TR max agusto: 236.9 cm/sec MV P1/2t max agusto: 88.4 cm/sec TR max P.5 mmHg MVA(P1/2t): 2.9 cm2 PA V2 max: 97.4 cm/sec PA V2 mean: 64.2 cm/sec PA mean P.9 mmHg PA Accel Time: 0.19 sec Electronically signed by: Riley Zapata M.D. on Reading Physician:12/20/2018 01:26 PM
[2018-12-19 14:50] VITALS: BP 184/107; PULSE 89; RESP 16; TEMP 37.2; O2SAT 96; BMI 33.4
--- NOTE | 2018-12-19 15:21 | DI.RAD.S_ITS ---
PROCEDURE: XR CHEST 2V INDICATIONS: cough and shortness of breath TECHNIQUE: 2 views of the chest were acquired. COMPARISON: None. FINDINGS: Surgical changes and devices: Radiopaque metallic structure projecting over the thoracic inlet and midline spine, most likely a cervical disc replacement. Lungs and pleura: Lungs are clear. No pleural effusions or pneumothorax. Mediastinum: Mediastinal contours are normal. Heart size is normal. Bones and chest wall: No suspicious bony abnormalities. Degenerative changes of the shoulders and spine. Soft tissues appear unremarkable. IMPRESSION: No acute cardiopulmonary abnormality. Dictated by: Ryan Arechiga M.D. on 12/19/2018 at 14:54 Approved by: Ryan Arechiga M.D. on 12/19/2018 at 14:57
--- NOTE | 2018-12-19 16:52 | PC.NURSE ---
pt reports, onset of hot/cold/sweat/diaphoresis frontal headache, high blood preassure,+nausea no vomiting, had intermittent chest pain, pain free now. 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 pt with hx of anxiety,panic,depression, addictions. denies coughing, vomiting or diarrhea.
[2018-12-19 16:55] VITALS: BP 184/102; PULSE 81; RESP 16; O2SAT 99
[2018-12-19 16:55] LABS: Add Manual Diff / Slide Review NO; Basophils Absolute Auto 100 /uL (0-100); Basophils Percent Auto 0.7 % (0-2); Eosinophils Absolute Auto 100 /uL (0-450); Eosinophils Percent Auto 0.6 % (2-4); Hematocrit 37.9 % (36-46); Hemoglobin 12.5 g/dL (12.0-16.0); Lymphocytes Absolute Auto 1000 /uL (1100-4500); Lymphocytes Percent Auto 9.9 % (25-40); Mean Corpuscular HGB Conc 32.9 % (30-36); Mean Corpuscular Hemoglobin 26.5 PG (26-34); Mean Corpuscular Volume 80.4 fL (80-100); Monocytes Absolute Auto 400 /uL (0-900); Monocytes Percent Auto 3.5 % (3-14); Neutrophils Absolute Auto 8700 /uL (1500-7000); Neutrophils Percent Auto 85.3 % (50-75); Platelet Count 257 X10^3/uL (150-400); Red Blood Cell Count 4.72 X10^6/uL (4.0-5.2); Red Cell Distribution Width 16.1 % (11.6-14.8); White Blood Cell Count 10.2 X10^3/uL (4.5-11.0)
[2018-12-19 17:00] VITALS: BP 178/104; PULSE 83; RESP 16; O2SAT 96
[2018-12-19 17:07] LABS: Prothrombin Time 11.7 SECONDS (10.1-12.7)
[2018-12-19 17:10] LABS: PTT Partial Thromboplastin Tim 34 SECONDS (26.4-36.2)
[2018-12-19 17:11] LABS: Alanine Aminotransferase 15 IU/L (9-52); Albumin 4.5 g/dL (3.5-5.0); Albumin Globulin Ratio 1.3 (1.0-2.8); Alkaline Phosphatase 98 U/L (38-126); Aspartate Aminotransferase 26 IU/L (14-36); BUN Creatinine Ratio 14.3 (6-22); Bilirubin Total 0.7 mg/dL (0.2-1.3); Blood Urea Nitrogen 10 mg/dL (7-17); Calcium 9.2 mg/dL (8.4-10.2); Carbon Dioxide 24 mmol/L (22-32); Chloride 107 mmol/L (98-107); Creatine Kinase 124 U/L (30-135); Estimated Glomerular Filt Rate > 60.0 mL/min (>60); Globulin 3.4 g/dL (1.7-4.1); Glucose 117 mg/dL (70-100); HEMOLYSIS < 15 (0-50); Lipase 86 U/L (23-300); Potassium 3.8 mmol/L (3.4-5.1); Sodium 141 mmol/L (137-145); Total Protein 7.9 g/dL (6.3-8.2)
[2018-12-19 17:22] LABS: Troponin I < 0.012 ng/mL (0.01-0.034)
[2018-12-19 17:26] LABS: CKMB % Relative Index 1.4 % (1.5-5.0); Creatine Kinase MB 1.68 ng/mL (<2.37)
[2018-12-19 17:58] LABS: Influenza A and B by PCR Rapid Negative (Negative)
[2018-12-19 18:10] LABS: D Dimer 1037 ng/mL (<230)
[2018-12-19 18:14] LABS: Bacteria Urine Occasional (0-1); Culture Indicated Urine Cult Not Indicated; Mucus Urine 1+ (Negative); RBC Urine 5-10/HPF (0-5/HPF); Squamous Epithelial Cell Urine 5-10 /HPF (0-5/HPF); WBC Urine 0-1/HPF (0-5/HPF)
--- NOTE | 2018-12-19 18:19 | DI.CT.S_ITS ---
PROCEDURE: CT ANGIO CHEST PE PROTOCOL INDICATIONS: sob TECHNIQUE: After the administration of intravenous contrast, 2 mm thick sections acquired from the pulmonary apices to the posterior costophrenic angles. 3-dimensional maximum intensity projection (MIP) coronal and sagittal reformats were then acquired through the thorax. For radiation dose reduction, the following was used: automated exposure control, adjustment of mA and/or kV according to patient size. COMPARISON: [facility], , XR CHEST 2V, 12/19/2018, 15:31. FINDINGS: Image quality: Excellent. Pulmonary arteries: There are filling defects within multiple right pulmonary arteries consistent with pulmonary embolism. This includes a small linear filling defect in the distal aspect of the right lobar pulmonary artery with extension into segmental and subsegmental branches of the right upper, middle, and lower lobe pulmonary arteries. No definite occlusive thrombus identified. No pulmonary arterial enlargement or leftward deviation of the interventricular septum to suggest right heart strain. Lungs and pleura: There is mild dependent atelectasis bilaterally. No focal consolidation. No evidence of pulmonary infarct. No pleural effusions or pneumothorax. Central and peripheral airways are patent. Mediastinum: Heart size is at upper limits of normal, with a trace pericardial effusion. No mediastinal or hilar adenopathy. Thoracic aorta is normal in caliber and enhancement. Esophagus is normal in caliber, without hiatal hernia. Bones and chest wall: No suspicious bony lesions. Ribs and thoracic spine appear intact throughout. No axillary or supraclavicular adenopathy. Abdomen: Visualized upper abdomen demonstrates a peripherally calcified stone in the gallbladder measuring up to 2.4 cm. No definite gallbladder wall thickening or pericholecystic fluid. IMPRESSION: 1. Pulmonary embolism demonstrated within the right lobar pulmonary artery extending into upper, middle, and lower lobe pulmonary arteries. No evidence of right heart strain. Findings discussed with JOSH Gutierres on 12/19/18 at 73 7:37 PM. 2. Cholelithiasis without definite CT evidence of cholecystitis. Dictated by: Viraj Gaitan M.D. on 12/19/2018 at 19:33 Approved by: Viraj Gaitan M.D. on 12/19/2018 at 19:41
[2018-12-19] MEDS: ACETAMINOPHEN 325 MG TABLET 975 MG PO (18:20)
[2018-12-19 19:18] VITALS: BP 170/93; PULSE 82; RESP 14; O2SAT 98
--- NOTE | 2018-12-19 19:18 | PC.NURSE ---
Updated pt's medication list: States she is not taking any medication daily. Stopped Lisinopril about a year ago and states she should be taking it but does not have an active script.
[2018-12-19 19:29] LABS: UR Morphine/Opiate cutoff 300 Negative (Negative); Ur Creatinine Normal (Normal); Ur Specific Gravity Normal (Normal); Urine Amphetamines Negative (Negative); Urine Barbiturates Negative (Negative); Urine Benzodiazepines Negative (Negative); Urine Cocaine Negative (Negative); Urine MDMA Negative (Negative); Urine Methadone Negative (Negative); Urine Methamphetamines Negative (Negative); Urine Oxycodone Negative (Negative); Urine Phencyclidine Negative (Negative); Urine Tetrahydrocannabinol Negative (Negative); Urine Tricyclic Antidepressant Negative (Negative); Urine pH Normal (Normal)
[2018-12-19 20:10] VITALS: BP 161/96; PULSE 84; O2SAT 97
--- NOTE | 2018-12-19 20:16 | ED.SOB ---
HPI - SOB/Dyspnea <KB Gutierres - Last Filed: 12/19/18 20:47> General Chief Complaint: Shortness of Breath/Dyspnea Stated Complaint: maybe a reaction to a medication hard time breathi Time Seen by Provider: 12/19/18 16:56 Source: patient and family Mode of arrival: Ambulatory Limitations: no limitations History of Present Illness HPI Narrative: The patient is a 53-year-old female current smoker with history of migraines and UTI who presents with a chief complaint of shortness of breath for the past few days. She complains of slight chest pain upon inspiration only. She denies any cough. She states she recently started on naltrexone to help stay clean from meth and feels as though it may be related to that. She wonders if she has having a reaction to the naltrexone. She states she has had fevers and chills for the past few weeks. She states she has been clean from meth for 3 weeks and has had fevers and chills since. She complains slight dysuria on occasion, denies abdominal pain, denies any chest pain. She denies any recent surgeries or immobility. She denies any history of blood clots. Nothing makes the shortness of breath or fevers or chills worse or improved. She is concerned about fluid pneumonia. Denies any ear pain. Denies any sore throat. Related Data Home Medications Medication Instructions Recorded Confirmed naltrexone 50 mg PO DAILY 12/19/18 12/19/18 Allergies Allergy/AdvReac Type Severity Reaction Status Date / Time No Known Drug Allergies Allergy Verified 06/10/18 10:57 Review of Systems <KB Gutierres - Last Filed: 12/19/18 20:47> Review of Systems Narrative: GENERAL: See HPI HEENT: Denies sinus pain, ear pain, sore throat, difficulty swallowing, dizziness. RESPIRATORY: See HPI CARDIOVASCULAR: Denies chest pain, palpitations, orthopnea, edema, GASTROINTESTINAL: Denies nausea, vomiting, abdominal pain, diarrhea, constipation, melena. : Denies dysuria, frequency, incontinence, hematuria, urinary retention. MUSCULOSKELETAL: denies weakness, joint pain, or bony pain SKIN: Denies rash, skin lesions, or other NEUROLOGIC: Denies weakness, headache, numbness, change in speech, confusion, seizures, incoordination. PSYCHIATRIC: No concerning psychosocial issues. 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 Unsure if will stay in area or not. Social History household members: family housing: homeless Smoking Status: Current every day smoker alcohol intake: current substance use type: marijuana additional social history: Homeless, currently staying with mother locally. Unsure if will stay in area or not. alcohol intake frequency: holidays/special occasions only Substance Use Type: marijuana and methamphetamine Exam <NARAYAN Gutierres - Last Filed: 12/19/18 20:47> Narrative Exam Narrative: GENERAL: This is a well-nourished, well-developed patient, in no acute distress HEAD: Atraumatic. Normocephalic. No temporal or scalp tenderness. EYES: Pupils equal round and reactive. Extraocular motions intact. No scleral icterus. No injection or drainage. ENT: Nose without bleeding, purulent drainage or septal hematoma. Throat without erythema, tonsillar hypertrophy or exudate. Uvula midline. Airway patent. NECK: Trachea midline. No JVD or lymphadenopathy. Supple, nontender, no meningeal signs. CARDIOVASCULAR: Regular rate and rhythm without murmurs, gallops, or rubs. RESPIRATORY: Clear to auscultation. Breath sounds equal bilaterally. No wheezes, rales, or rhonchi. No cough. No increased respiratory effort. No accessory muscle use. GASTROINTESTINAL: Abdomen soft, non-tender, nondistended. No hepato-splenomegaly, or palpable masses. No guarding. Active bowel sounds all 4 quadrants. EXTREMITIES: No clubbing, cyanosis, or edema. No joint tenderness, effusion, or edema noted. BACK: Nontender without deformity or crepitance. No flank tenderness. NEURO: AOx3. SKIN: No rash or erythema on visible skin Initial Vital Signs Initial Vital Signs: Vital Signs Temperature 99.0 F 12/19/18 14:50 Pulse Rate 89 12/19/18 14:50 Respiratory Rate 16 12/19/18 14:50 Blood Pressure 184/107 H 12/19/18 14:50 Pulse Oximetry 96 12/19/18 14:50 <Giselle Grady DO - Last Filed: 12/19/18 23:59> Initial Vital Signs Initial Vital Signs: Vital Signs Temperature 99.0 F 12/19/18 14:50 Pulse Rate 89 12/19/18 14:50 Respiratory Rate 16 12/19/18 14:50 Blood Pressure 184/107 H 12/19/18 14:50 Pulse Oximetry 96 12/19/18 14:50 Scores <NARAYAN Gutierres - Last Filed: 12/19/18 20:47> PERC Score Age greater than or equal to 50 years: Yes Heart rate greater than or equal to 100 bpm: No Room Air O2 Sat less than 95%: No Unilateral leg swelling: No Recent trauma or surgery: No Hemoptysis: No Prior PE or DVT: No Hormone Use: No Total PERC Score: 1 Course <NARAYAN Gutierres - Last Filed: 12/19/18 20:47> Orders Ordered: ED Orders 12/19/18 15:21 Chest [XR chest 2V] Stat 12/19/18 16:40 B Type Natriuretic Peptide Stat Complete Blood Count AUTO DIFF Stat Comprehensive Metabolic Panel Stat D Dimer Stat Lipase Stat Partial Thromboplastin Time Stat Prothrombin Time INR Stat Troponin & CK Cardiac Panel Stat 12/19/18 16:50 EKG-12 Lead Stat 12/19/18 17:30 Influenza A and B by PCR Rapid Stat 12/19/18 17:40 Urine Drug Screen, Rapid Stat Urine Microscopic Stat 12/19/18 18:19 CT angio chest PE protocol Stat 12/19/18 20:00 Troponin & CK Cardiac Panel Stat 12/20/18 02:00 PTT [Partial Thromboplastin Time] Q6H 12/20/18 05:00 Hemoglobin and Hematocrit DAILY 12/20/18 08:00 PTT [Partial Thromboplastin Time] Q6H 12/20/18 14:00 PTT [Partial Thromboplastin Time] Q6H Heparin Sodium/Dextrose (Heparin Drip) 25,000 unit in 500 mls @ 24 mls/hr IV CONT LAURI; Protocol Last Titration: 12/19/18 21:49 Dose: 1,200 units/hr, 24 mls/hr Documented by: Admin: 12/19/18 20:27 Dose: 1,200 units/hr, 24 mls/hr Documented by: TIANNA Influenza Virus Vaccine (Flu Vaccine) 0.5 ml IM .ONCE ONE Stop: 12/20/18 09:01 Metoclopramide HCl (Reglan) 10 mg IV Q6HR PRN PRN Reason: Nausea And Vomiting Pantoprazole Sodium (Protonix) 40 mg IV DAILY LAURI Discontinued Medications Acetaminophen (Tylenol) 975 mg PO NOW ONE Stop: 12/19/18 18:18 Last Admin: 12/19/18 18:20 Dose: 975 mg Documented by: ERIKA Heparin Sodium (Porcine) (Heparin) 7,500 unit IV NOW ONE Stop: 12/19/18 19:51 Last Admin: 12/19/18 20:26 Dose: 7,500 unit Documented by: TIANNA Vital Signs Vital signs: Vital Signs - 8 hr 12/19/18 16:55 12/19/18 17:00 12/19/18 19:18 Pulse Rate 81 83 82 Respiratory Rate 16 16 14 Blood Pressure [Left Arm] 184/102 H 178/104 H 170/93 H Pulse Oximetry 99 96 98 12/19/18 20:10 Pulse Rate 84 Respiratory Rate Blood Pressure [Left Arm] 161/96 H Pulse Oximetry 97 <Giselle Grady DO - Last Filed: 12/19/18 23:59> Orders Ordered: ED Orders 12/19/18 15:21 Chest [XR chest 2V] Stat 12/19/18 16:40 B Type Natriuretic Peptide Stat Complete Blood Count AUTO DIFF Stat Comprehensive Metabolic Panel Stat D Dimer Stat Lipase Stat Partial Thromboplastin Time Stat Prothrombin Time INR Stat Troponin & CK Cardiac Panel Stat 12/19/18 16:50 EKG-12 Lead Stat 12/19/18 17:30 Influenza A and B by PCR Rapid Stat 12/19/18 17:40 Urine Drug Screen, Rapid Stat Urine Microscopic Stat 12/19/18 18:19 CT angio chest PE protocol Stat 12/19/18 20:00 Troponin & CK Cardiac Panel Stat 12/20/18 02:00 PTT [Partial Thromboplastin Time] Q6H 12/20/18 05:00 Hemoglobin and Hematocrit DAILY 12/20/18 08:00 PTT [Partial Thromboplastin Time] Q6H 12/20/18 14:00 PTT [Partial Thromboplastin Time] Q6H Heparin Sodium/Dextrose (Heparin Drip) 25,000 unit in 500 mls @ 24 mls/hr IV CONT LAURI; Protocol Last Titration: 12/19/18 21:49 Dose: 1,200 units/hr, 24 mls/hr Documented by: Admin: 12/19/18 20:27 Dose: 1,200 units/hr, 24 mls/hr Documented by: TIANNA Influenza Virus Vaccine (Flu Vaccine) 0.5 ml IM .ONCE ONE Stop: 12/20/18 09:01 Metoclopramide HCl (Reglan) 10 mg IV Q6HR PRN PRN Reason: Nausea And Vomiting Pantoprazole Sodium (Protonix) 40 mg IV DAILY LAURI Discontinued Medications Acetaminophen (Tylenol) 975 mg PO NOW ONE Stop: 12/19/18 18:18 Last Admin: 12/19/18 18:20 Dose: 975 mg Documented by: ERIKA Heparin Sodium (Porcine) (Heparin) 7,500 unit IV NOW ONE Stop: 12/19/18 19:51 Last Admin: 12/19/18 20:26 Dose: 7,500 unit Documented by: TIANNA Vital Signs Vital signs: Vital Signs - 8 hr 12/19/18 16:55 12/19/18 17:00 12/19/18 19:18 Pulse Rate 81 83 82 Respiratory Rate 16 16 14 Blood Pressure [Left Arm] 184/102 H 178/104 H 170/93 H Pulse Oximetry 99 96 98 12/19/18 20:10 Pulse Rate 84 Respiratory Rate Blood Pressure [Left Arm] 161/96 H Pulse Oximetry 97 MDM - SOB/Dyspnea <NARAYAN Gutierres - Last Filed: 12/19/18 20:47> Lab Data Result diagrams: 12/19/18 16:40 12/19/18 16:40 Labs: Lab Results 12/19/18 12/19/18 12/19/18 Range/Units 16:40 16:40 16:40 WBC 10.2 (4.5-11.0) X10^3/uL RBC 4.72 (4.0-5.2) X10^6/uL Hgb 12.5 (12.0-16.0) g/dL Hct 37.9 (36-46) % MCV 80.4 (80-100) fL MCH 26.5 (26-34) PG MCHC 32.9 (30-36) % RDW 16.1 H (11.6-14.8) % Plt Count 257 (150-400) X10^3/uL Neut % (Auto) 85.3 H (50-75) % Lymph % (Auto) 9.9 L (25-40) % Hubbard % (Auto) 3.5 (3-14) % Eos % (Auto) 0.6 L (2-4) % Baso % (Auto) 0.7 (0-2) % Neut # (Auto) 8700 H (1285-5809) /uL Lymph # (Auto) 1000 L (5603-8726) /uL Hubbard # (Auto) 400 (0-900) /uL Eos # (Auto) 100 (0-450) /uL Baso # (Auto) 100 (0-100) /uL PT 11.7 (10.1-12.7) SECONDS INR 1.0 (0.9-1.3) APTT 34 (26.4-36.2) SECONDS D-Dimer (<230) ng/mL Sodium 141 (137-145) mmol/L Potassium 3.8 (3.4-5.1) mmol/L Chloride 107 (98-107) mmol/L Carbon Dioxide 24 (22-32) mmol/L BUN 10 (7-17) mg/dL Creatinine 0.70 (0.52-1.04) mg/dL Estimated GFR > 60.0 (>60) mL/min BUN/Creatinine Ratio 14.3 (6-22) Glucose 117 H (70-100) mg/dL Calcium 9.2 (8.4-10.2) mg/dL Total Bilirubin 0.7 (0.2-1.3) mg/dL AST 26 (14-36) IU/L ALT 15 (9-52) IU/L Alkaline Phosphatase 98 (38-126) U/L Total Creatine Kinase 124 (30-135) U/L CK-MB (CK-2) 1.68 (<2.37) ng/mL CK-MB (CK-2) Rel Index 1.4 L (1.5-5.0) % Troponin I < 0.012 (0.01-0.034) ng/mL B-Natriuretic Peptide (<100) Total Protein 7.9 (6.3-8.2) g/dL Albumin 4.5 (3.5-5.0) g/dL Globulin 3.4 (1.7-4.1) g/dL Albumin/Globulin Ratio 1.3 (1.0-2.8) Lipase 86 (23-300) U/L Urine RBC (0-5/HPF) Urine WBC (0-5/HPF) Ur Squamous Epith Cells (0-5/HPF) Urine Bacteria (None) Urine Mucus (Negative) Ur Culture Indicated? U Morph 300 ng/mL cutoff (Negative) Ur Oxycodone Screen (Negative) Urine Methadone Screen (Negative) Ur Barbiturates Screen (Negative) U Tricyclic Antidepress (Negative) Ur Phencyclidine Scrn (Negative) Ur Amphetamines Screen (Negative) U Methamphetamines Scrn (Negative) Ur MDMA Scrn (Ecstasy) (Negative) U Benzodiazepines Scrn (Negative) Urine Cocaine Screen (Negative) U Marijuana (THC) Screen (Negative) Influenza A & B (PCR) (Negative) 12/19/18 12/19/18 12/19/18 Range/Units 16:40 16:40 17:30 WBC (4.5-11.0) X10^3/uL RBC (4.0-5.2) X10^6/uL Hgb (12.0-16.0) g/dL Hct (36-46) % MCV (80-100) fL MCH (26-34) PG MCHC (30-36) % RDW (11.6-14.8) % Plt Count (150-400) X10^3/uL Neut % (Auto) (50-75) % Lymph % (Auto) (25-40) % Hubbard % (Auto) (3-14) % Eos % (Auto) (2-4) % Baso % (Auto) (0-2) % Neut # (Auto) (3901-9507) /uL Lymph # (Auto) (7948-0330) /uL Hubbard # (Auto) (0-900) /uL Eos # (Auto) (0-450) /uL Baso # (Auto) (0-100) /uL PT (10.1-12.7) SECONDS INR (0.9-1.3) APTT (26.4-36.2) SECONDS D-Dimer 1037 H (<230) ng/mL Sodium (137-145) mmol/L Potassium (3.4-5.1) mmol/L Chloride (98-107) mmol/L Carbon Dioxide (22-32) mmol/L BUN (7-17) mg/dL Creatinine (0.52-1.04) mg/dL Estimated GFR (>60) mL/min BUN/Creatinine Ratio (6-22) Glucose (70-100) mg/dL Calcium (8.4-10.2) mg/dL Total Bilirubin (0.2-1.3) mg/dL AST (14-36) IU/L ALT (9-52) IU/L Alkaline Phosphatase (38-126) U/L Total Creatine Kinase (30-135) U/L CK-MB (CK-2) (<2.37) ng/mL CK-MB (CK-2) Rel Index (1.5-5.0) % Troponin I (0.01-0.034) ng/mL B-Natriuretic Peptide < 100 (<100) Total Protein (6.3-8.2) g/dL Albumin (3.5-5.0) g/dL Globulin (1.7-4.1) g/dL Albumin/Globulin Ratio (1.0-2.8) Lipase (23-300) U/L Urine RBC (0-5/HPF) Urine WBC (0-5/HPF) Ur Squamous Epith Cells (0-5/HPF) Urine Bacteria (None) Urine Mucus (Negative) Ur Culture Indicated? U Morph 300 ng/mL cutoff (Negative) Ur Oxycodone Screen (Negative) Urine Methadone Screen (Negative) Ur Barbiturates Screen (Negative) U Tricyclic Antidepress (Negative) Ur Phencyclidine Scrn (Negative) Ur Amphetamines Screen (Negative) U Methamphetamines Scrn (Negative) Ur MDMA Scrn (Ecstasy) (Negative) U Benzodiazepines Scrn (Negative) Urine Cocaine Screen (Negative) U Marijuana (THC) Screen (Negative) Influenza A & B (PCR) Negative (Negative) 12/19/18 12/19/18 12/19/18 Range/Units 17:40 17:40 20:00 WBC (4.5-11.0) X10^3/uL RBC (4.0-5.2) X10^6/uL Hgb (12.0-16.0) g/dL Hct (36-46) % MCV (80-100) fL MCH (26-34) PG MCHC (30-36) % RDW (11.6-14.8) % Plt Count (150-400) X10^3/uL Neut % (Auto) (50-75) % Lymph % (Auto) (25-40) % Hubbard % (Auto) (3-14) % Eos % (Auto) (2-4) % Baso % (Auto) (0-2) % Neut # (Auto) (8976-0489) /uL Lymph # (Auto) (2395-6920) /uL Hubbard # (Auto) (0-900) /uL Eos # (Auto) (0-450) /uL Baso # (Auto) (0-100) /uL PT (10.1-12.7) SECONDS INR (0.9-1.3) APTT (26.4-36.2) SECONDS D-Dimer (<230) ng/mL Sodium (137-145) mmol/L Potassium (3.4-5.1) mmol/L Chloride (98-107) mmol/L Carbon Dioxide (22-32) mmol/L BUN (7-17) mg/dL Creatinine (0.52-1.04) mg/dL Estimated GFR (>60) mL/min BUN/Creatinine Ratio (6-22) Glucose (70-100) mg/dL Calcium (8.4-10.2) mg/dL Total Bilirubin (0.2-1.3) mg/dL AST (14-36) IU/L ALT (9-52) IU/L Alkaline Phosphatase (38-126) U/L Total Creatine Kinase 111 (30-135) U/L CK-MB (CK-2) 1.28 (<2.37) ng/mL CK-MB (CK-2) Rel Index 1.2 L (1.5-5.0) % Troponin I < 0.012 (0.01-0.034) ng/mL B-Natriuretic Peptide (<100) Total Protein (6.3-8.2) g/dL Albumin (3.5-5.0) g/dL Globulin (1.7-4.1) g/dL Albumin/Globulin Ratio (1.0-2.8) Lipase (23-300) U/L Urine RBC 5-10/hpf H (0-5/HPF) Urine WBC 0-1/hpf (0-5/HPF) Ur Squamous Epith Cells 5-10 /hpf H (0-5/HPF) Urine Bacteria Occasional (0-1) (None) Urine Mucus 1+ H (Negative) Ur Culture Indicated? Cult not indicated U Morph 300 ng/mL cutoff Negative (Negative) Ur Oxycodone Screen Negative (Negative) Urine Methadone Screen Negative (Negative) Ur Barbiturates Screen Negative (Negative) U Tricyclic Antidepress Negative (Negative) Ur Phencyclidine Scrn Negative (Negative) Ur Amphetamines Screen Negative (Negative) U Methamphetamines Scrn Negative (Negative) Ur MDMA Scrn (Ecstasy) Negative (Negative) U Benzodiazepines Scrn Negative (Negative) Urine Cocaine Screen Negative (Negative) U Marijuana (THC) Screen Negative (Negative) Influenza A & B (PCR) (Negative) Point of Care Testing Test Results Negative Urine Dip Bedside Urine Glucose Negative Bedside Urine Bilirubin - Negative Bedside Urine Ketone ++ 40 Urine Specific [place] 1.020 Bedside Urine Occult Blood +++ Bedside Urine pH 6.0 Bedside Urine Protein + 30 Bedside Urine Urobilinogen - Negative Bedside Urine Nitrite - Negative Bedside Urine Leukocytes - Negative Esterase Imaging Data Chest CTA: Radiologist's impression: DillonSita Soliz 53 F [address] [address] [address] Scan Report Signed Patient: Sita Morris MMR#: [id number] : 1965Acct:[id number] Age/Sex: 53 / FDate of Service: 12/19/18 Loc: ED Accession Number: [id number] Procedure: CT angio chest PE protocol Ordering Provider: Giselle Garza-BC PROCEDURE: CT ANGIO CHEST PE PROTOCOL INDICATIONS: sob TECHNIQUE: After the administration of intravenous contrast, 2 mm thick sections acquired from the pulmonary apices to the posterior costophrenic angles. 3-dimensional maximum intensity projection (MIP) coronal and sagittal reformats were then acquired through the thorax. For radiation dose reduction, the following was used: automated exposure control, adjustment of mA and/or kV according to patient size. COMPARISON: [facility], , XR CHEST 2V, 12/19/2018, 15:31. FINDINGS: Image quality: Excellent. Pulmonary arteries: There are filling defects within multiple right pulmonary arteries consistent with pulmonary embolism. This includes a small linear filling defect in the distal aspect of the right lobar pulmonary artery with extension into segmental and subsegmental branches of the right upper, middle, and lower lobe pulmonary arteries. No definite occlusive thrombus identified. No pulmonary arterial enlargement or leftward deviation of the interventricular septum to suggest right heart strain. Lungs and pleura: There is mild dependent atelectasis bilaterally. No focal consolidation. No evidence of pulmonary infarct. No pleural effusions or pneumothorax. Central and peripheral airways are patent. Mediastinum: Heart size is at upper limits of normal, with a trace pericardial effusion. No mediastinal or hilar adenopathy. Thoracic aorta is normal in caliber and enhancement. Esophagus is normal in caliber, without hiatal hernia. Bones and chest wall: No suspicious bony lesions. Ribs and thoracic spine appear intact throughout. No axillary or supraclavicular adenopathy. Abdomen: Visualized upper abdomen demonstrates a peripherally calcified stone in the gallbladder measuring up to 2.4 cm. No definite gallbladder wall thickening or pericholecystic fluid. IMPRESSION: 1. Pulmonary embolism demonstrated within the right lobar pulmonary artery extending into upper, middle, and lower lobe pulmonary arteries. No evidence of right heart strain. Findings discussed with JOSH Gutierres on 12/19/18 at 73 7:37 PM. 2. Cholelithiasis without definite CT evidence of cholecystitis. Dictated by: Viraj Gaitan M.D. on 12/19/2018 at 19:33 Approved by: Viraj Gaitan M.D. on 12/19/2018 at 19:41 Chest x-ray: Radiologist's impression: [facility] DATE TYPE STATUS AUTHOR Hx 12/19/18 18:19 Viraj Gaitan 12/19/18 15:21 Ryan Arechiga Sita Morris 53, F0 1965 REG ER, Main ED R07 172.72cm 99.79kg BMI: 33.5kg/m? Shortness of Breath/Dyspnea Search Chart No Data to Display ONSET Today 20:10 Sita Morris 53 F 1965 [place] [id number] XRay Report Signed Patient: Sita Morrsi MMR#: [id number] : 1965Acct:[id number] Age/Sex: 53 / FDate of Service: 12/19/18 Loc: ED Accession Number: [id number] Procedure: XR chest 2V Ordering Provider: Janki Nair MD PROCEDURE: XR CHEST 2V INDICATIONS: cough and shortness of breath TECHNIQUE: 2 views of the chest were acquired. COMPARISON: None. FINDINGS: Surgical changes and devices: Radiopaque metallic structure projecting over the thoracic inlet and midline spine, most likely a cervical disc replacement. Lungs and pleura: Lungs are clear. No pleural effusions or pneumothorax. Mediastinum: Mediastinal contours are normal. Heart size is normal. Bones and chest wall: No suspicious bony abnormalities. Degenerative changes of the shoulders and spine. Soft tissues appear unremarkable. IMPRESSION: No acute cardiopulmonary abnormality. Dictated by: Ryan Arechiga M.D. on 12/19/2018 at 14:54 Approved by: Ryan Arechiga M.D. on 12/19/2018 at 14:57 [facility] Narrative Medical decision making narrative: The patient is a 53-year-old female who presents with a chief complaint of shortness of breath over the past few days. Her initial troponin is negative, her flu test was negative. Given that the patient had persistent shortness of breath, did obtain a D-dimer. She denies any recent surgeries, flights immobility etc. However her D-dimer was elevated so I obtained a CT PA. This came back with a pulmonary embolism in the right lobe or pulmonary artery extending into in upper middle and lower lobe normal pulmonary arteries. I spoke with Dr. Grady and the patient was started on heparin. Given the patient's lack of primary care, complex social history including recent methamphetamine use I am concerned about discharging her home. Thus I spoke with ISIDORO Strange who kindly agreed to accept the patient as an inpatient. I discussed admission with the patient she states appreciation has no questions or concerns. <Giselle Grady, DO - Last Filed: 12/19/18 23:59> Lab Data Attestation: I reviewed the patient's lab results. Labs: Lab Results 12/19/18 12/19/18 12/19/18 Range/Units 16:40 16:40 16:40 WBC 10.2 (4.5-11.0) X10^3/uL RBC 4.72 (4.0-5.2) X10^6/uL Hgb 12.5 (12.0-16.0) g/dL Hct 37.9 (36-46) % MCV 80.4 (80-100) fL MCH 26.5 (26-34) PG MCHC 32.9 (30-36) % RDW 16.1 H (11.6-14.8) % Plt Count 257 (150-400) X10^3/uL Neut % (Auto) 85.3 H (50-75) % Lymph % (Auto) 9.9 L (25-40) % Hubbard % (Auto) 3.5 (3-14) % Eos % (Auto) 0.6 L (2-4) % Baso % (Auto) 0.7 (0-2) % Neut # (Auto) 8700 H (4947-2501) /uL Lymph # (Auto) 1000 L (8484-0475) /uL Hubbard # (Auto) 400 (0-900) /uL Eos # (Auto) 100 (0-450) /uL Baso # (Auto) 100 (0-100) /uL PT 11.7 (10.1-12.7) SECONDS INR 1.0 (0.9-1.3) APTT 34 (26.4-36.2) SECONDS D-Dimer (<230) ng/mL Sodium 141 (137-145) mmol/L Potassium 3.8 (3.4-5.1) mmol/L Chloride 107 (98-107) mmol/L Carbon Dioxide 24 (22-32) mmol/L BUN 10 (7-17) mg/dL Creatinine 0.70 (0.52-1.04) mg/dL Estimated GFR > 60.0 (>60) mL/min BUN/Creatinine Ratio 14.3 (6-22) Glucose 117 H (70-100) mg/dL Calcium 9.2 (8.4-10.2) mg/dL Total Bilirubin 0.7 (0.2-1.3) mg/dL AST 26 (14-36) IU/L ALT 15 (9-52) IU/L Alkaline Phosphatase 98 (38-126) U/L Total Creatine Kinase 124 (30-135) U/L CK-MB (CK-2) 1.68 (<2.37) ng/mL CK-MB (CK-2) Rel Index 1.4 L (1.5-5.0) % Troponin I < 0.012 (0.01-0.034) ng/mL B-Natriuretic Peptide (<100) Total Protein 7.9 (6.3-8.2) g/dL Albumin 4.5 (3.5-5.0) g/dL Globulin 3.4 (1.7-4.1) g/dL Albumin/Globulin Ratio 1.3 (1.0-2.8) Lipase 86 (23-300) U/L Urine RBC (0-5/HPF) Urine WBC (0-5/HPF) Ur Squamous Epith Cells (0-5/HPF) Urine Bacteria (None) Urine Mucus (Negative) Ur Culture Indicated? U Morph 300 ng/mL cutoff (Negative) Ur Oxycodone Screen (Negative) Urine Methadone Screen (Negative) Ur Barbiturates Screen (Negative) U Tricyclic Antidepress (Negative) Ur Phencyclidine Scrn (Negative) Ur Amphetamines Screen (Negative) U Methamphetamines Scrn (Negative) Ur MDMA Scrn (Ecstasy) (Negative) U Benzodiazepines Scrn (Negative) Urine Cocaine Screen (Negative) U Marijuana (THC) Screen (Negative) Influenza A & B (PCR) (Negative) 12/19/18 12/19/18 12/19/18 Range/Units 16:40 16:40 17:30 WBC (4.5-11.0) X10^3/uL RBC (4.0-5.2) X10^6/uL Hgb (12.0-16.0) g/dL Hct (36-46) % MCV (80-100) fL MCH (26-34) PG MCHC (30-36) % RDW (11.6-14.8) % Plt Count (150-400) X10^3/uL Neut % (Auto) (50-75) % Lymph % (Auto) (25-40) % Hubbard % (Auto) (3-14) % Eos % (Auto) (2-4) % Baso % (Auto) (0-2) % Neut # (Auto) (9135-3781) /uL Lymph # (Auto) (9056-8589) /uL Hubbard # (Auto) (0-900) /uL Eos # (Auto) (0-450) /uL Baso # (Auto) (0-100) /uL PT (10.1-12.7) SECONDS INR (0.9-1.3) APTT (26.4-36.2) SECONDS D-Dimer 1037 H (<230) ng/mL Sodium (137-145) mmol/L Potassium (3.4-5.1) mmol/L Chloride (98-107) mmol/L Carbon Dioxide (22-32) mmol/L BUN (7-17) mg/dL Creatinine (0.52-1.04) mg/dL Estimated GFR (>60) mL/min BUN/Creatinine Ratio (6-22) Glucose (70-100) mg/dL Calcium (8.4-10.2) mg/dL Total Bilirubin (0.2-1.3) mg/dL AST (14-36) IU/L ALT (9-52) IU/L Alkaline Phosphatase (38-126) U/L Total Creatine Kinase (30-135) U/L CK-MB (CK-2) (<2.37) ng/mL CK-MB (CK-2) Rel Index (1.5-5.0) % Troponin I (0.01-0.034) ng/mL B-Natriuretic Peptide < 100 (<100) Total Protein (6.3-8.2) g/dL Albumin (3.5-5.0) g/dL Globulin (1.7-4.1) g/dL Albumin/Globulin Ratio (1.0-2.8) Lipase (23-300) U/L Urine RBC (0-5/HPF) Urine WBC (0-5/HPF) Ur Squamous Epith Cells (0-5/HPF) Urine Bacteria (None) Urine Mucus (Negative) Ur Culture Indicated? U Morph 300 ng/mL cutoff (Negative) Ur Oxycodone Screen (Negative) Urine Methadone Screen (Negative) Ur Barbiturates Screen (Negative) U Tricyclic Antidepress (Negative) Ur Phencyclidine Scrn (Negative) Ur Amphetamines Screen (Negative) U Methamphetamines Scrn (Negative) Ur MDMA Scrn (Ecstasy) (Negative) U Benzodiazepines Scrn (Negative) Urine Cocaine Screen (Negative) U Marijuana (THC) Screen (Negative) Influenza A & B (PCR) Negative (Negative) 12/19/18 12/19/18 12/19/18 Range/Units 17:40 17:40 20:00 WBC (4.5-11.0) X10^3/uL RBC (4.0-5.2) X10^6/uL Hgb (12.0-16.0) g/dL Hct (36-46) % MCV (80-100) fL MCH (26-34) PG MCHC (30-36) % RDW (11.6-14.8) % Plt Count (150-400) X10^3/uL Neut % (Auto) (50-75) % Lymph % (Auto) (25-40) % Hubbard % (Auto) (3-14) % Eos % (Auto) (2-4) % Baso % (Auto) (0-2) % Neut # (Auto) (6746-8774) /uL Lymph # (Auto) (2146-5241) /uL Hubbard # (Auto) (0-900) /uL Eos # (Auto) (0-450) /uL Baso # (Auto) (0-100) /uL PT (10.1-12.7) SECONDS INR (0.9-1.3) APTT (26.4-36.2) SECONDS D-Dimer (<230) ng/mL Sodium (137-145) mmol/L Potassium (3.4-5.1) mmol/L Chloride (98-107) mmol/L Carbon Dioxide (22-32) mmol/L BUN (7-17) mg/dL Creatinine (0.52-1.04) mg/dL Estimated GFR (>60) mL/min BUN/Creatinine Ratio (6-22) Glucose (70-100) mg/dL Calcium (8.4-10.2) mg/dL Total Bilirubin (0.2-1.3) mg/dL AST (14-36) IU/L ALT (9-52) IU/L Alkaline Phosphatase (38-126) U/L Total Creatine Kinase 111 (30-135) U/L CK-MB (CK-2) 1.28 (<2.37) ng/mL CK-MB (CK-2) Rel Index 1.2 L (1.5-5.0) % Troponin I < 0.012 (0.01-0.034) ng/mL B-Natriuretic Peptide (<100) Total Protein (6.3-8.2) g/dL Albumin (3.5-5.0) g/dL Globulin (1.7-4.1) g/dL Albumin/Globulin Ratio (1.0-2.8) Lipase (23-300) U/L Urine RBC 5-10/hpf H (0-5/HPF) Urine WBC 0-1/hpf (0-5/HPF) Ur Squamous Epith Cells 5-10 /hpf H (0-5/HPF) Urine Bacteria Occasional (0-1) (None) Urine Mucus 1+ H (Negative) Ur Culture Indicated? Cult not indicated U Morph 300 ng/mL cutoff Negative (Negative) Ur Oxycodone Screen Negative (Negative) Urine Methadone Screen Negative (Negative) Ur Barbiturates Screen Negative (Negative) U Tricyclic Antidepress Negative (Negative) Ur Phencyclidine Scrn Negative (Negative) Ur Amphetamines Screen Negative (Negative) U Methamphetamines Scrn Negative (Negative) Ur MDMA Scrn (Ecstasy) Negative (Negative) U Benzodiazepines Scrn Negative (Negative) Urine Cocaine Screen Negative (Negative) U Marijuana (THC) Screen Negative (Negative) Influenza A & B (PCR) (Negative) Point of Care Testing Test Results Negative Urine Dip Bedside Urine Glucose Negative Bedside Urine Bilirubin - Negative Bedside Urine Ketone ++ 40 Urine Specific [place] 1.020 Bedside Urine Occult Blood +++ Bedside Urine pH 6.0 Bedside Urine Protein + 30 Bedside Urine Urobilinogen - Negative Bedside Urine Nitrite - Negative Bedside Urine Leukocytes - Negative Esterase MDM Narrative Medical decision making narrative: Patient case was discussed with myself, based on of clot burden and patient has difficulty with maintaining appropriate treatment Um particularly starting her on the right medication on Thursday evening felt he would be in her best interest to keep her in the hospital. Discharge Plan Departure Patient Disposition: Admitted As Inpatient Clinical Impression: Pulmonary embolism Qualifiers: Pulmonary embolism type: unspecified Chronicity: acute Acute cor pulmonale presence: unspecified Qualified Code(s): I26.99 - Other pulmonary embolism without acute cor pulmonale Discharge Date/Time: 12/19/18 21:54 Admit Date/Time: 12/19/18 21:50 Admit Provider: Trudy Strange
[2018-12-19] MEDS: HEPARIN 5,000 UNIT/ML VIAL 7500 UNIT IV (20:26)
[2018-12-19] MEDS: HEPARIN DRIP 25,000 UNIT/500 ML IV.SOLN 24 UNIT IV (20:27)
--- NOTE | 2018-12-19 20:27 | PC.NURSE ---
heparin infusion rate verified with darya del cid
[2018-12-19 20:34] LABS: Creatine Kinase 111 U/L (30-135)
[2018-12-19 20:46] LABS: Troponin I < 0.012 ng/mL (0.01-0.034)
[2018-12-19 20:47] LABS: B Type Natriuretic Peptide < 100 (<100)
[2018-12-19 20:49] LABS: CKMB % Relative Index 1.2 % (1.5-5.0); Creatine Kinase MB 1.28 ng/mL (<2.37)
--- NOTE | 2018-12-19 20:56 | PC.NURSE ---
educated pt on precautions for bleeding r/t thinners. Pt restated in her own words how she will monitor stools for bleeding. Pt restated in her own words how she will be cautious and is aware of the need to monitor self for bleeding. Pt restated in her own words how she would apply direct pressure to any external bleeds and will return to the ED for any bleeds she cannot controll.
--- NOTE | 2018-12-19 21:34 | PC.NURSE ---
report given to Linda [facility] ICU RM 106 in preparation for transfer to unit.
--- NOTE | 2018-12-19 21:50 | PC.NURSE ---
heparin continuing in ICU
[2018-12-19 22:01] VITALS: BMI 33.4
[2018-12-19 23:01] VITALS: O2SAT 97
[2018-12-20] VITALS (9 sets, daily range): BP systolic 155–187; BP diastolic 92–113; PULSE 59–89; RESP 15–20; TEMP 36.7–37.2; O2SAT 97–99
--- NOTE | 2018-12-20 00:51 | P.HP_ITS ---
History of Present Illness History of Present Illness Date Patient Seen: 12/19/18 Time Patient Seen: 21:00 Chief complaint: maybe a reaction to a medication hard time breathi Narrative: Sita Morris is a pleasant 53 y.o. female with a history of an OR and diagno stic angiocath at [facility] approximately 6 months ago, methamphetamine user currently in remission, presented to the emergency department after having a difficult night last night waking up every hour to urinate and being unable to be comfortable. She is recently relocated to the area from [place] [facility] to join her mother and states that ever since arriving in this area has felt poorly and fatigued. She states that when she initially arrived she spent several weeks mostly in bed only getting up to eat. She stated she had cold sweats and upon admission to the ED had a temperature of 99?. She states she has not been eating eating she has felt dizzy no energy and as mentioned before, sleeping a lot. She is homeless, and presented to [facility] in [place] with chest p ain symptoms, was admitted and underwent diagnostic angiocath results of which she states were negative. She was given blood pressure medications at that time however likely due to her living situation has not been taking any of these blood pressure medications. She states that she was prescribed lisinopril and another blood pressure medications of which we do not have information on. Patient History Medical History (Updated 12/19/18 @ 20:44 by JOSH Gutierres-NEELAM) Coronary artery disease (Chronic) Hypertension (Chronic) Methamphetamine abuse in remission (Acute) Tobacco abuse (Chronic) Surgical History (Updated 12/20/18 @ 01:06 by ISIDORO Mcallister) H/O angioplasty (Chronic) Social History household members: family housing: homeless Smoking Status: Current every day smoker alcohol intake: current substance use type: marijuana additional social history: Homeless, currently staying with mother locally. Unsure if will stay in area or not. Family & Social History Social History: household members family Prior Living Arrangements homeless Safety & Behavioral: Feels Safe in Current Yes Environment Been Physically Hurt or No Threatened By a Person Suicidal Ideation Description Vague Suicide Plan Description No Plan Tobacco & Substance use: Smoking Status Current every day smoker, approximately 5 per day alcohol intake current alcohol intake frequency holiday/special occasion Substance Use Type marijuana,methamphetamine Meds Home Medications and Allergies Home Medications Medication Instructions Recorded Confirmed Type naltrexone 50 mg PO DAILY 12/19/18 12/19/18 History Allergies Allergy/AdvReac Type Severity Reaction Status Date / Time No Known Drug Allergies Allergy Verified 06/10/18 10:57 Review of Systems Review of Systems ROS Unobtainable: All systems reviewed & are unremarkable except as noted in HPI and below Exam Vital Signs (past 8 hours): - 12/19/18 16:55 12/19/18 17:00 12/19/18 19:18 Temperature Pulse Rate 81 83 82 Respiratory Rate 16 16 14 Blood Pressure Blood Pressure [Left Arm] 184/102 H 178/104 H 170/93 H Pulse Oximetry 99 96 98 12/19/18 20:10 12/19/18 23:01 12/20/18 00:08 Temperature 99.0 F Pulse Rate 84 89 Respiratory Rate 20 Blood Pressure 181/97 H Blood Pressure [Left Arm] 161/96 H Pulse Oximetry 97 97 99 Oxygen Delivery Method Room Air Narrative Exam Narrative: Gen: Alert, oriented, obese 53 y.o. female, very tearful HEENT: normocephalic, atraumatic, conjunctiva clear, sclera non-icteric, oral mucosa pink and moist Neck: supple, full ROM Resp: Lungs CTA, non-labored breathing CV: RRR, no murmur or rubs Abd: soft, non-tender, normoactive BTs Skin: no lesions or rashes, dry and intact Neuro: Alert and oriented X 4 w/no focal deficits Extremities: moves all 4 extremities, is ambulatory, negative Aisha?s sign Psyche: normal mood and affect. Objective Labs Result Diagrams: 12/19/18 16:40 12/19/18 16:40 Labs: Laboratory Results - last 24 hr 12/19/18 12/19/18 12/19/18 16:40 16:40 16:40 WBC 10.2 RBC 4.72 Hgb 12.5 Hct 37.9 MCV 80.4 MCH 26.5 MCHC 32.9 RDW 16.1 H Plt Count 257 Neut % (Auto) 85.3 H Lymph % (Auto) 9.9 L Meagher % (Auto) 3.5 Eos % (Auto) 0.6 L Baso % (Auto) 0.7 Neut # (Auto) 8700 H Lymph # (Auto) 1000 L Meagher # (Auto) 400 Eos # (Auto) 100 Baso # (Auto) 100 PT 11.7 INR 1.0 APTT 34 D-Dimer Sodium 141 Potassium 3.8 Chloride 107 Carbon Dioxide 24 BUN 10 Creatinine 0.70 Estimated GFR > 60.0 BUN/Creatinine Ratio 14.3 Glucose 117 H Calcium 9.2 Total Bilirubin 0.7 AST 26 ALT 15 Alkaline Phosphatase 98 Total Creatine Kinase 124 CK-MB (CK-2) 1.68 CK-MB (CK-2) Rel Index 1.4 L Troponin I < 0.012 B-Natriuretic Peptide Total Protein 7.9 Albumin 4.5 Globulin 3.4 Albumin/Globulin Ratio 1.3 Lipase 86 Urine RBC Urine WBC Ur Squamous Epith Cells Urine Bacteria Urine Mucus Ur Culture Indicated? U Morph 300 ng/mL cutoff Ur Oxycodone Screen Urine Methadone Screen Ur Barbiturates Screen U Tricyclic Antidepress Ur Phencyclidine Scrn Ur Amphetamines Screen U Methamphetamines Scrn Ur MDMA Scrn (Ecstasy) U Benzodiazepines Scrn Urine Cocaine Screen U Marijuana (THC) Screen Influenza A & B (PCR) 12/19/18 12/19/18 12/19/18 16:40 16:40 17:30 WBC RBC Hgb Hct MCV MCH MCHC RDW Plt Count Neut % (Auto) Lymph % (Auto) Me[place] % (Auto) Eos % (Auto) Baso % (Auto) Neut # (Auto) Lymph # (Auto) Meagher # (Auto) Eos # (Auto) Baso # (Auto) PT INR APTT D-Dimer 1037 H Sodium Potassium Chloride Carbon Dioxide BUN Creatinine Estimated GFR BUN/Creatinine Ratio Glucose Calcium Total Bilirubin AST ALT Alkaline Phosphatase Total Creatine Kinase CK-MB (CK-2) CK-MB (CK-2) Rel Index Troponin I B-Natriuretic Peptide < 100 Total Protein Albumin Globulin Albumin/Globulin Ratio Lipase Urine RBC Urine WBC Ur Squamous Epith Cells Urine Bacteria Urine Mucus Ur Culture Indicated? U Morph 300 ng/mL cutoff Ur Oxycodone Screen Urine Methadone Screen Ur Barbiturates Screen U Tricyclic Antidepress Ur Phencyclidine Scrn Ur Amphetamines Screen U Methamphetamines Scrn Ur MDMA Scrn (Ecstasy) U Benzodiazepines Scrn Urine Cocaine Screen U Marijuana (THC) Screen Influenza A & B (PCR) Negative 12/19/18 12/19/18 12/19/18 17:40 17:40 20:00 WBC RBC Hgb Hct MCV MCH MCHC RDW Plt Count Neut % (Auto) Lymph % (Auto) [place] % (Auto) Eos % (Auto) Baso % (Auto) Neut # (Auto) Lymph # (Auto) Meagher # (Auto) Eos # (Auto) Baso # (Auto) PT INR APTT D-Dimer Sodium Potassium Chloride Carbon Dioxide BUN Creatinine Estimated GFR BUN/Creatinine Ratio Glucose Calcium Total Bilirubin AST ALT Alkaline Phosphatase Total Creatine Kinase 111 CK-MB (CK-2) 1.28 CK-MB (CK-2) Rel Index 1.2 L Troponin I < 0.012 B-Natriuretic Peptide Total Protein Albumin Globulin Albumin/Globulin Ratio Lipase Urine RBC 5-10/hpf H Urine WBC 0-1/hpf Ur Squamous Epith Cells 5-10 /hpf H Urine Bacteria Occasional (0-1) Urine Mucus 1+ H Ur Culture Indicated? Cult not indicated U Morph 300 ng/mL cutoff Negative Ur Oxycodone Screen Negative Urine Methadone Screen Negative Ur Barbiturates Screen Negative U Tricyclic Antidepress Negative Ur Phencyclidine Scrn Negative Ur Amphetamines Screen Negative U Methamphetamines Scrn Negative Ur MDMA Scrn (Ecstasy) Negative U Benzodiazepines Scrn Negative Urine Cocaine Screen Negative U Marijuana (THC) Screen Negative Influenza A & B (PCR) Assessment & Plan Assessment & Plan narrative: Sita Morris is a 53-year-old female who will be admitted to the intensive care unit for a heparin drip and further management of a right-sided pulmonary embolism. 1. Right-sided pulmonary embolism, acute, present on admission * She will be on a heparin drip overnight, likely start on a DOAC in the morning * Echocardiogram in the morning 2. Essential hypertension * Patient will be started on metoprolol 25 mg po bid, starting tonight as she is hypertensive 3. Homelessness * I have requested a social work consult to assist the patient in mobilizing housing and medical resources * Patient will need a PCP for regular follow-up Patient is admitted to the ICU for the heparin drip and cardiac monitoring. Her stay is anticipated to exceed 2 midnights. FEN: undergoing heparin drip, low-sodium diet, chemistries in the am. VTE Prophylaxis: Currently on a heparin drip Disposition: Likely discharge to home Code status: Full Code Admission time: 55 minutes Meds reconciled: No, patient not currently taking any medications. Time Spent With Patient Time with patient: 15-24 minutes Scores CHADS-VASc Congestive heart failure: no Hypertension: yes Age 75 years or older: no Diabetes mellitus: no Stroke, TIA, or TE: no Vascular disease: yes Age 65 to 74 years: no Sex category (female): Female CHADS-VASc Score: 3 Quality VTE Deep Vein Thrombosis/Pulmonary Embolism Present on Admission: Yes
[2018-12-20 02:07] LABS: Hematocrit 35.2 % (36-46); Hemoglobin 11.7 g/dL (12.0-16.0)
[2018-12-20] MEDS: METOPROLOL IR 25 MG TABLET PO ×2 (02:11→08:38)
[2018-12-20 02:17] LABS: PTT Partial Thromboplastin Tim 69 SECONDS (26.4-36.2)
[2018-12-20 02:23] LABS: INR 1.1 (0.9-1.3); Prothrombin Time 12.5 SECONDS (10.1-12.7)
--- NOTE | 2018-12-20 06:23 | PC.NURSE ---
Patient is A/O x3, little restless early in shift, denies pain or shortness of breath, says I just can't sleep Heparin gtt at 1200 units/hr throughout night per non-coronary protocol. PTT in target range of 69 at 0300. SpO2 >95% on RA, breath sounds slightly diminished on Rt, otherwise CTA. SR, BBB, HTN, 25mg PO metoprolol started as ordered.
[2018-12-20] MEDS: INFLUENZA VACCINE 0.5 ML SYRINGE IM (08:38)
[2018-12-20] MEDS: PANTOPRAZOLE 40 MG VIAL IV (08:39)
[2018-12-20 08:48] LABS: PTT Partial Thromboplastin Tim 53 SECONDS (26.4-36.2)
[2018-12-20 08:49] LABS: Cholesterol 210 mg/dL (140-199); HDL Cholesterol 49 mg/dL (40-60); LDL Cholesterol Calculated 146 mg/dL (<100); Triglycerides 75 mg/dL (35-150)
[2018-12-20] MEDS: HEPARIN 5,000 UNIT/ML VIAL 5000 UNIT (09:15)
[2018-12-20 09:21] LABS: TSH w/ Reflex to FT4 1.45 uIU/mL (0.47-4.68)
[2018-12-20] MEDS: APIXABAN 5 MG TABLET PO (10:54)
[2018-12-20] MEDS: ACETAMINOPHEN 325 MG TABLET 650 MG PO (13:23)
[2018-12-20] MEDS: KETOROLAC 10 MG TABLET PO (14:22)
--- NOTE | 2018-12-21 09:10 | CM.DANOTE ---
DCP Brief Assessment/Late Entry: Reviewed chart. Patient is a 53yr old female admitted to [facility] with SOB. No PCP listed. Primary payor is 1)PW 2)Medicaid. Discussed case in AM rounds with Dr. Dumont. He reported yesterday that he was anticipating d/c on 12-20-18. Dr. Dumont did not anticipate any d/c planning needs. Initially, it was reported that patient was possibly homeless but he reports that she does have place to go. Per Dr. Dumont, only possible d/c need would be medication coverage. Dr. Dumont reported in AM rounds that he would let CM team know prior to patient discharging if he needed us to check on medication coverage. CM team attempted visit late in the day on 12-20 but patient had already discharged. P: Home 12-20-18. AMAYA Macias
--- NOTE | 2018-12-21 22:12 | P.DS_ITS ---
History of Present Illness History of Present Illness Date Patient Seen: 12/20/18 Time Patient Seen: 09:25 Chief complaint: maybe a reaction to a medication hard time breathi Narrative: As per ISIDORO Mcallister: Sita Morris is a pleasant 53 y.o. female with a history of an [place] and diagnostic angiocath at [facility] approximately 6 months ago, m ethamphetamine user currently in remission, presented to the emergency department after having a difficult night last night waking up every hour to urinate and being unable to be comfortable. She is recently relocated to the area from [place] [facility] to join her mother and states that ever since a rriving in this area has felt poorly and fatigued. She states that when she initially arrived she spent several weeks mostly in bed only getting up to eat. She stated she had cold sweats and upon admission to the ED had a temperature of 99?. She states she has not been eating eating she has felt dizzy no energy and as mentioned before, sleeping a lot. She is homeless, and presented to [facility] in [place] with chest pain symptoms, was admitted and underwent diagnostic angiocath results of which she states were negative. She was given blood pressure medications at that time however likely due to her living situation has not been taking any of these blood pressure medications. She states that she was prescribed lisinopril and another blood pressure medications of which we do not have information on. Discharge Providers Provider Date of admission: 12/19/18 21:50 Discharge Date: 12/20/18 Consults: 12/19/18 22:31 Consult to Discharge Planning Routine Comment: 12/19/18 22:36 Consult to Discharge Planning Routine Comment: 12/20/18 09:37 Consult to DISPATCHER SERVICE CHIEF - [employer] Routine Comment: Homeless, needs new PCP, insurance, housing DISPATCHER SERVICE CHIEF Consult: [facility] Need Discharge provider: Genaro Dumont DO Summary Hospital Course Discharge Diagnosis: 1. Acute pulmonary embolism, present on admission 2. Essential htn, chronic, present on admission 3. Homelessness 4. History of substance use disorder, methamphetamines Hospital Course: Sita Morris is a 53-year-old female who was admitted for a new right sided pulmonary embolism. Her echocardiogram showed no evidence of R heart strain nor did her CTA. She was initially on a heparin drip. She was started on apixaban and discharged the following day as she remained hemodynamically stable. She was restarted on her home mediations for blood pressure. She needs to establish care with a new primary care provider within the next month to follow up on further management of her blod pressure and for further anticoagulation. She is going to live with a friend here in [place], she is trying to stay clean off of drug use which is the reason she moved here. Status at Discharge Cognitive/behavioral status at discharge: oriented Functional status at discharge: independent ambulation Overall status at discharge: patient is back to baseline Time Spent with Patient Time spent: Greater than 30 minutes Exam Vital Signs (past 8 hours): Oxygen Delivery Method Room Air Oxygen Flow Rate 0 Narrative Exam Narrative: Gen: Alert, oriented, obese 53 y.o. female, cookie NAD. HEENT: normocephalic, atraumatic, conjunctiva clear, sclera non-icteric, oral mucosa pink and moist Neck: supple, full ROM Resp: Lungs CTA, non-labored breathing CV: RRR, no murmur or rubs Abd: soft, non-tender, normoactive BTs Skin: no lesions or rashes, dry and intact Neuro: Alert and oriented X 4 w/no focal deficits Extremities: moves all 4 extremities, is ambulatory, negative Aisha?s sign Psyche: normal mood and affect. Objective Labs Result Diagrams: 12/20/18 01:58 12/19/18 16:40 Discharge Plan Discharge Plan Patient Disposition: Home Discharge comment: You were admitted to the hospital for a pulmonary embolism. There is no evidence of strain on your heart and you can be safely discharged home. You should take apixaban 10 mg twice daily for 1 week, and then 5 mg twice daily thereafter. You should follow up with a primary care provider for further prescriptions and to establish care within the next month before your prescription runs out. Discharge Med Rec/Prescriptions Prescriptions: New metoprolol tartrate 25 mg Tablet 25 mg PO BID 30 Days Qty: 60 RF: 0 atorvastatin 40 mg tablet 40 mg PO BEDTIME 30 Days Qty: 30 RF: 0 apixaban 5 mg (74 tabs) tablets,dose pack See Rx Instructions .ROUTE .COMPLEX 30 Days Qty: 74 RF: 0 Continued naltrexone 50 mg tablet 50 mg PO DAILY RF: 0 Provider Discharge Instructions Diet: Diet as Tolerated Activity: As tolerated Visit Report/Discharge Packet Instructions: DI for Pulmonary Embolism, Apixaban Discharge Data Attending Provider: Trudy Strange Admit Date/Time: 12/19/18 21:50 Discharges patient from system. Discharge Date/Time: 12/20/18 15:32 Quality VTE Deep Vein Thrombosis/Pulmonary Embolism Present on Admission: Yes
== END 2018-12-20 15:32 | disposition home or self-care (01) ==
LOC: ED 20:44 → ICU 12-20 09:01 → AC 12-20 14:38 → ICU 12-20 14:39
PROVIDERS: Emergency Medicine; Admitting Provider Nurse Practitioner Family; Emergency Provider Nurse Practitioner Family; Visit Provider Nurse Practitioner Family
DX: I26.99 Other pulmonary embolism without acute cor pulmonale (principal); R06.02 Shortness of breath; Z23 Encounter for immunization; F17.210 Nicotine dependence, cigarettes, uncomplicated; F15.11 Other stimulant abuse, in remission; I10 Essential (primary) hypertension; I25.10 Atherosclerotic heart disease of native coronary artery without angina pectoris; Z59.0 Homelessness
CPT/HCPCS: 36415; 71046; 71275; 80053; 80061; 80305; 81003; 81015; 81025; 82550; 82553; 83690; 83880; 84443; 84484; 85014; 85018; 85025; 85379; 85610; 85730; 87502; 90471; 90656; 93005; 93306; 94762; 96365; 96366; 96375; 96376; 99284; 99285; G0378; C9113; J1644; Q2038; Q9967